=== PATIENT | male | born 1980 | race Caucasian/White ===

== ENCOUNTER → 2021-02-27 11:13 | Outpatient (BNVA) | payer OTHER, SELFPAY | PROVIDERS: PCP Internal Medicine; Visit Provider Psychiatry & Neurology Neurology ==

== ENCOUNTER → 2021-04-11 14:52 | Outpatient (REF) | payer OTHER, SELFPAY | LOC: HO.SL 14:52 | PROVIDERS: PCP Internal Medicine; Visit Provider Psychiatry & Neurology Neurology | DX: G47.10 Hypersomnia, unspecified (principal); G47.00 Insomnia, unspecified | CPT/HCPCS: 95806 ==

== ENCOUNTER → 2021-07-31 09:52 | Outpatient (BNVA) | payer OTHER, SELFPAY | PROVIDERS: PCP Internal Medicine; Referring Provider Internal Medicine; Visit Provider Psychiatry & Neurology Neurology ==

== ENCOUNTER 2022-01-03 12:37 | Outpatient (REF) | payer OTHER, SELFPAY ==
[2022-01-03 12:48] LABS: MANUAL DIFF FLAG NO
[2022-01-03 13:41] LABS: Basophils Percent Auto 0.3 % (0-2); Eosinophils Absolute Auto 0.1 X10*3/uL (0.0-0.4); Eosinophils Percent Auto 2.5 % (0-4); Hematocrit 41.8 % (42.0-52.0); Hemoglobin 13.4 g/dl (14.0-18.0); Imm Gran Abs Auto 0.01 X10*3/uL (0.00-0.03); Imm Gran Pct Auto 0.3 % (0.0-0.4); Lymphocytes Absolute Auto 1.7 X10*3/uL (1.2-4.9); Lymphocytes Percent Auto 41.9 % (20-40); Mean Corpuscular HGB Conc 32.1 g/dl (31.0-36.0); Mean Corpuscular Hemoglobin 28.8 pg (27.0-33.0); Mean Corpuscular Volume 89.9 fL (80.0-98.0); Mean Platelet Volume 10.1 fL (9.4-12.4); Monocytes Absolute Auto 0.4 X10*3/uL (0.1-1.2); Monocytes Percent Auto 9.3 % (2-11); Neutrophils Absolute Auto 1.8 x10*3/uL (2.0-8.3); Neutrophils Percent Auto 45.7 % (45-73); Platelet Count 295 X10*3/uL (160-400); Red Blood Count 4.65 X10*6/uL (4.60-5.80); Red Cell Distribution Width 13.6 % (11.0-16.0)
[2022-01-03 14:08] LABS: Alanine Aminotransferase 27 U/L (0-40); Albumin Level 4.1 g/dL (3.5-5.0); Alkaline Phosphatase 76 U/L (39-117); Anion Gap 11 (12-20); Aspartate Amino Transferase 24 U/L (5-37); Bilirubin Total 0.8 mg/dL (0.0-1.0); Blood Urea Nitrogen 17 mg/dL (9-16); C Reactive Protein 0.12 mg/dL (< or = 0.50); Calcium 9.8 mg/dL (8.4-10.2); Carbon Dioxide 33 mmol/L (22-29); Chloride 103 mmol/L (96-108); Cholesterol 252 mg/dL; Estimated Glomerular Filt Rate > 60; Glucose Random 61 mg/dL (60-115); HDL Cholesterol 43 mg/dL; LDL Cholesterol Calculated 185 mg/dl; Potassium 4.6 mmol/L (3.3-5.1); Sodium 142 mmol/L (135-145); Total Protein 6.8 g/dL (6.5-8.0); Triglycerides 120 mg/dL
[2022-01-03 14:21] LABS: Erythrocyte Sedimentation Rate 8 MM/HR (0-15); Free T4 (Free Thyroxine) 0.93 ng/dL (0.71-1.85); Thyroid Stimulating Hormone 2.78 uIU/mL (0.32-4.0)
[2022-01-03 15:20] LABS: Folate > 20.0 ng/mL (> or = 4.0); Vitamin B12 997 pg/mL (200-900)
== END 2022-01-03 12:38 | disposition home or self-care (01) ==
LOC: HO.LAB 12:37
PROVIDERS: PCP Internal Medicine; Visit Provider Internal Medicine
DX: M79.7 Fibromyalgia (principal); E78.00 Pure hypercholesterolemia, unspecified
CPT/HCPCS: 36415; 80053; 80061; 82607; 82746; 84439; 84443; 85025; 85652; 86140

== ENCOUNTER → 2022-01-09 20:17 | Outpatient (REF) | payer OTHER, SELFPAY | LOC: HO.SL 20:17 | PROVIDERS: PCP Internal Medicine; Visit Provider Psychiatry & Neurology Neurology | DX: G47.00 Insomnia, unspecified (principal) | CPT/HCPCS: 95810 ==

== ENCOUNTER 2022-04-03 16:12 | Outpatient (REF) | payer OTHER, SELFPAY ==
[2022-04-03 16:25] LABS: MANUAL DIFF FLAG NO
[2022-04-03 16:56] LABS: Basophils Percent Auto 0.5 % (0-2); Eosinophils Absolute Auto 0.1 X10*3/uL (0.0-0.4); Eosinophils Percent Auto 1.6 % (0-4); Hematocrit 36.9 % (42.0-52.0); Hemoglobin 12.2 g/dl (14.0-18.0); Imm Gran Abs Auto 0.01 X10*3/uL (0.00-0.03); Imm Gran Pct Auto 0.2 % (0.0-0.4); Immature Retic Fraction 7.6 % (2.3-13.4); Lymphocytes Absolute Auto 1.7 X10*3/uL (1.2-4.9); Lymphocytes Percent Auto 37.6 % (20-40); Mean Corpuscular HGB Conc 33.1 g/dl (31.0-36.0); Mean Corpuscular Hemoglobin 29.9 pg (27.0-33.0); Mean Corpuscular Volume 90.4 fL (80.0-98.0); Monocytes Absolute Auto 0.4 X10*3/uL (0.1-1.2); Monocytes Percent Auto 8.4 % (2-11); Neutrophils Absolute Auto 2.3 x10*3/uL (2.0-8.3); Neutrophils Percent Auto 51.7 % (45-73); Platelet Count 263 X10*3/uL (160-400); Red Blood Count 4.08 X10*6/uL (4.60-5.80); Red Cell Distribution Width 13.2 % (11.0-16.0); Retic HGB Equivalent 34.3 pg (30.0-35.0); Reticulocyte Percent 0.8 % (0.5-1.8); Reticulocytes Absolute 0.031 X10*6/uL (0.026-0.095); White Blood Count 4.4 X10*3/uL (4.8-10.8)
[2022-04-03 17:38] LABS: Alanine Aminotransferase 21 U/L (0-40); Albumin Level 4.1 g/dL (3.5-5.0); Alkaline Phosphatase 64 U/L (39-117); Anion Gap 9 (12-20); Aspartate Amino Transferase 24 U/L (5-37); Bilirubin Total 0.5 mg/dL (0.0-1.0); Blood Urea Nitrogen 17 mg/dL (9-16); Carbon Dioxide 34 mmol/L (22-29); Chloride 101 mmol/L (96-108); Cholesterol 240 mg/dL; Estimated Glomerular Filt Rate > 60; Glucose Random 77 mg/dL (60-115); HDL Cholesterol 44 mg/dL; Iron 66 mcg/dL (45-160); LDL Cholesterol Calculated 163 mg/dl; Percent Iron Saturation 27 % (15-50); Potassium 4.7 mmol/L (3.3-5.1); Sodium 139 mmol/L (135-145); Total Iron Binding Capacity 243 mcg/dL (228-428); Total Protein 6.6 g/dL (6.5-8.0); Triglycerides 165 mg/dL; Unsaturated Iron Binding 177 ug/dL
[2022-04-03 17:53] LABS: Ferritin 100 ng/mL (20-250)
== END 2022-04-03 16:13 | disposition home or self-care (01) ==
LOC: HO.LAB 16:12
PROVIDERS: PCP Internal Medicine; Visit Provider Internal Medicine
DX: E78.00 Pure hypercholesterolemia, unspecified (principal); K59.00 Constipation, unspecified
CPT/HCPCS: 36415; 80053; 80061; 82728; 83540; 85025; 85045

== ENCOUNTER 2023-09-18 12:55 | Outpatient (AMB) | payer OTHER, SELFPAY ==
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
[2023-09-18 13:11] VITALS: BP 118/74; PULSE 71; O2SAT 98; BMI 23.8
== END 2023-09-18 14:15 | disposition home or self-care (01) ==
PROVIDERS: Visit Provider Internal Medicine
DX: Z00.00 Encounter for general adult medical examination without abnormal findings (principal); Z72.0 Tobacco use; F11.259 Opioid dependence with opioid-induced psychotic disorder, unspecified; Z23 Encounter for immunization; E78.00 Pure hypercholesterolemia, unspecified; F41.1 Generalized anxiety disorder; K59.00 Constipation, unspecified; R06.02 Shortness of breath; R00.2 Palpitations
CPT/HCPCS: 90471; 90686; 96127; 99396

== ENCOUNTER → 2023-10-24 08:07 | Outpatient (REF) | payer BC, SELFPAY ==
--- NOTE | 2023-10-24 08:19 | HM_ITS ---
* Total monitoring time 3 days. * Underlying rhythm is sinus with an average rate of 73/Min. Range 41 to 149/Min. * About 18% of the time, rate greater than 100/Min. * Rare supraventricular and ventricular ectopy. * No significant pauses or AV blocks. * Patient markers used twice in association with sinus rhythm. * Patient diary with symptoms of tiredness, fatigue/shortness of breath during shoveling snow/snow blowing-associated with sinus rhythm and sinus tachycardia. MTDD
[2023-10-24 11:09] LABS: Alanine Aminotransferase 26 U/L (0-40); Albumin Level 4.2 g/dL (3.5-5.0); Alkaline Phosphatase 72 U/L (39-117); Anion Gap 13 (12-20); Aspartate Amino Transferase 30 U/L (5-37); Bilirubin Total 0.7 mg/dL (0.0-1.0); Blood Urea Nitrogen 14 mg/dL (9-16); C Reactive Protein 0.12 mg/dL (< or = 0.50); Calcium 9.4 mg/dL (8.4-10.2); Carbon Dioxide 29 mmol/L (22-29); Chloride 103 mmol/L (96-108); Cholesterol 267 mg/dL (<200); Estimated Glomerular Filt Rate > 60; Glucose Random 92 mg/dL (60-115); HDL Cholesterol 50 mg/dL (>40); LDL Cholesterol Calculated 191 mg/dL (<100); Potassium 4.2 mmol/L (3.3-5.1); Sodium 141 mmol/L (135-145); Total Protein 7.1 g/dL (6.5-8.0); Triglycerides 130 mg/dL (<150)
[2023-10-24 11:17] LABS: Ferritin 146 ng/mL (20-250); Free T4 (Free Thyroxine) 0.88 ng/dL (0.71-1.85); Thyroid Stimulating Hormone 1.95 uIU/mL (0.32-4.0)
== END ==
LOC: HO.CARD 08:07
PROVIDERS: PCP Internal Medicine; Visit Provider Internal Medicine
DX: R00.2 Palpitations (principal); R06.02 Shortness of breath; E78.00 Pure hypercholesterolemia, unspecified
CPT/HCPCS: 36415; 80053; 80061; 82607; 82728; 82746; 84439; 84443; 85025; 85652; 86140; 93005; 93017; 93242; 93306

== ENCOUNTER → 2023-10-24 08:19 | Outpatient (BNV) | payer BC, SELFPAY | PROVIDERS: PCP Internal Medicine; Visit Provider Nurse Practitioner | DX: I47.10 Supraventricular tachycardia, unspecified (principal) | CPT/HCPCS: 93010; 93016; 93018; 93244; 93306 ==

== ENCOUNTER 2023-10-27 11:31 | Outpatient (AMB) | payer BC, SELFPAY ==
--- NOTE | 2023-10-27 11:32 | MHC.OFFVIS ---
Intake Vital Signs 10/27/23 11:45 Height 5 ft 11 in Weight 170 lb 8 oz BMI 23.8 BP 101/61 Blood Pressure Location Lt brachial Position Sitting Respiration 18 Pulse 82 Pulse Source Pulse Oximeter Pulse Oximetry (%) 97 Oxygen Delivery Method Room Air Intake Visit Reasons: Fibromyalgia/confirmed Intake Note: patient comes in for initial visit was referred by PCP. Allergies Seasonal Allergies Allergy (Mild, Verified 10/27/23 11:56) Unknown HPI HPI Comments History of Present Illness Details Mr. Montreo is 43 years old gentleman who presents in my office with complains on widespread pain all over the body. He reports pain in form of muscle burning and cramping in the projection of the sternum bilateral hips bilateral calves bilateral feet bilateral elbows bilateral hands and bilateral lower back. He reports that because of his pain he cannot sleep normally cannot do activities of daily living cannot take care of himself cannot function normally apparently he is working. He is self mobile. Weather changes in movements aggravates his pain. He reports that pain in the hands is aggravated when he is extending his fingers straight. Any activities aggravate his pain. In terms of tissue damage he reports his pain as throbbing, cramping, aching, tiring, exhausting, hot burning, tingling, tearing sensation. He is currently taking Suboxone 24 mg maximum does to help his pain. He denies that Suboxone help his pain. He was on methadone with Dr. Bañuelos. Dr. Bañuelos converted him to Suboxone. He reports that methadone was much more helpful for his pain. He denies smoking cigarettes he stopped only 2 months ago. He denies drinking alcohol drinks 1 cup of coffee a day denies soda and denies recreational drugs. He reports past medical history of chronic fatigue syndrome and he denies any surgeries or hospitalization. He never was referred to physical therapy. He tried bicycling as a form of aerobic exercise and reports pain increase. [facility] Medical History (Updated 10/27/23 @ 12:23 by Malvin Victor MD) Constipation Hypercholesterolemia Polysubstance abuse History of seizure Erectile dysfunction Fibromyalgia Tobacco abuse Ascending aorta dilatation Opioid dependence Insomnia Surgical History No pertinent past surgical history Family History Father Hypertension Mother Hypertension Brother Colon cancer Brother Depression with anxiety Mental health disorder Social History (Updated 09/18/23 @ 13:52 by Aysha Beltran MD) Housing: House Alcohol intake: never Patient Tobacco Use Status: Former Tobacco user Tobacco use type: Cigarette Years Smoked: Vape electronic cigarettes- states stopped vape 08/2023 e-Cigarette/Vaping Use: Former Use Second Hand Smoke Exposure: No service: No Current occupational status: employed Cognitive needs: No Hearing needs: No Vision needs: No Review of Systems Const Reports body aches, Reports fatigue, Reports lethargy and Reports weakness ENT Reports Normal hearing present Card Reports no additional complaints Resp Reports no additional complaints GI Reports no additional complaints Reports no additional complaints Musc Reports as per HPI Neuro Reports Normal hearing present, Denies Abnormal speech present, Denies confusion, Denies Sensory deficit (Neuro) and Reports weakness Psych Reports abnormal sleep pattern and Denies confusion Endo Reports fatigue Physical Exam Vital Signs: Last Vital Signs Pulse 82 10/27/23 11:45 Resp 18 10/27/23 11:45 BP 101/61 10/27/23 11:45 Pulse Ox 97 10/27/23 11:45 Oxygen Delivery Method Room Air 10/27/23 11:45 BMI result Body Mass Index 23.8 Const General: no acute distress; No confusion Orientation/consciousness: patient oriented x3 and No confusion Eyes General: appearance normal, both eyes and all related structures Pupils: Equal, round and reactive pupils present EOM: EOMs intact bilaterally Neck Neck: Yes full ROM Chest Chest palpation & inspection: normal inspection of the chest Resp Effort & Inspection: normal respiratory effort, able to speak in complete sentences, normal respiratory pattern, no audible wheezes and no cough Cardio Jugular venous distension: no JVD GI Inspection: Yes normal to inspection Neuro General: patient oriented x3, gait normal and No confusion Cranial nerves: Yes CN's II-XII intact bilaterally, Yes Equal, round and reactive pupils present, Yes Normal hearing present and Yes Ability to bilaterally elevate shoulders present Speech: No Abnormal speech present Gait exam (Neuro): Normal gait present Motor exam (neuro): 5/5 motor strength present throughout Sensory Exam: No Sensory deficit (Neuro) Extrem General: No pedal edema Psych Speech and movement: Normal speech and movement present Affect: normal affect Attitude: cooperative Thought process: Normal thought process present Thought content: Normal thought content present Insight: Good insight present (Psych) Judgement: Good judgement present (Psych) Assessment & Plan Assessment & Plan (1) Fibromyalgia: Code(s): M79.7 - Fibromyalgia Plan: He reports that the he was under care of [place] supervisor and the as a diagnosis of exclusion he received a diagnosis of fibromyalgia. I explained to him that opioid medications including methadone and Suboxone/buprenorphine are the worst medications for fibromyalgia ever. I recommended him to got rid of any opioid medications he is currently on. There is a still possibility that he has some obscure condition which could potentially cause his symptoms. Rheumatological conditions are numerous, obscured infections also were found in the past to cause chronic fatigue syndrome and widespread pain. I recommended him to go for evaluation in the [facility] center of [facility] such as [facility] and [facility] or [facility]. In terms of treatment presuming that fibromyalgia diagnosis is correct I recommended him to start physical therapy, start opioid taper to get rid of all the medications of opioid nature. I will prescribe him gabapentin in significant doses which could potentially help his pain if his pain is coming from fibromyalgia. He reported that Lyrica causes some unknown side effects on him. (2) Chronic fatigue syndrome: Code(s): G93.32 - Myalgic encephalomyelitis/chronic fatigue syndrome Plan: Orders: Orders PT Evaluation and Treatment Today G93.32 - Myalgic encephalomyelitis/chronic fatigue syndrome, M79.7 - Fibromyalgia Medications: New gabapentin 400 mg PO TID 90 caps 5RF 30 days Patient Instructions: Patient came with intention to receive methadone. I spent 48 minutes discussing this patient problem with him as well as elevating his prior records, laboratory data and compressing this note. Coding Level of Care Code New Pt Level 4 (95983) Diagnoses Fibromyalgia M79.7 Chronic fatigue syndrome G93.32
[2023-10-27 11:45] VITALS: BP 101/61; PULSE 82; RESP 18; O2SAT 97; BMI 23.8
== END 2023-10-27 12:14 | disposition home or self-care (01) ==
PROVIDERS: PCP Internal Medicine; Referring Provider Internal Medicine; Visit Provider Anesthesiology
DX: M79.7 Fibromyalgia (principal); G93.32 Myalgic encephalomyelitis/chronic fatigue syndrome
CPT/HCPCS: 99204

== ENCOUNTER → 2023-10-27 11:31 | Outpatient (BNVA) | payer BC, SELFPAY | PROVIDERS: PCP Internal Medicine; Visit Provider Anesthesiology ==

== ENCOUNTER 2023-11-27 09:40 | Day surgery (SDC) | payer BC, SELFPAY ==
[2023-11-25 13:50] VITALS: BMI 23.8
--- NOTE | 2023-11-26 09:01 | P.CONAN_ITS ---
Documented by User: Tootie Cortes NP 11/26/23 09:07 HPI - Anesthesia Eval Consult details Narrative: 43yo M for Colonoscopy 10/2023 cardiac w/u by PCP for palps. Negative stress, holter. Echo shows known dilated asc aorta Suboxone daily PMFSH Active Problems Active Problems: All Active Problems (Updated 10/27/23 @ 12:23 by Malvin Victor MD) Chronic fatigue syndrome (Acute) Ascending aorta dilatation (Acute) SOB (shortness of breath) on exertion (Acute) Palpitations (Acute) Constipation (Acute) Acne (Acute) Seborrheic dermatitis of scalp (Acute) Anemia (Acute) Family history of colon cancer (Acute) Generalized anxiety disorder (Acute) Annual physical exam (Acute) Opioid dependence (Acute) Allergy (Acute) Insomnia (Acute) Hypersomnolence (Acute) Fibromyalgia (Acute) Nasal congestion (Acute) Hypercholesterolemia (Acute) Tobacco abuse (Acute) Past Medical History Medical History (Updated 11/27/23 @ 09:24 by Mamie Gilbert MD) Anemia Constipation Hypercholesterolemia Polysubstance abuse History of seizure Erectile dysfunction Fibromyalgia Tobacco abuse Ascending aorta dilatation Opioid dependence Insomnia Family History Family History Father Hypertension Mother Hypertension Brother Colon cancer Brother Depression with anxiety Mental health disorder Surgical History Surgical History No pertinent past surgical history Social History Social History Housing: House Alcohol intake: never Patient Tobacco Use Status: Former Tobacco user Tobacco use type: Cigarette Years Smoked: Vape electronic cigarettes- states stopped vape 08/2023 e-Cigarette/Vaping Use: Former Use Second Hand Smoke Exposure: No service: No Current occupational status: employed Cognitive needs: No Hearing needs: No Vision needs: No Meds Allergies Allergy/AdvReac Type Severity Reaction Status Date / Time Seasonal Allergies Allergy Mild Unknown Verified 10/27/23 11:56 Home Medications Medication Instructions Recorded Confirmed Last Taken Type clonazepam 0.5 mg tablet (Klonopin) 0.5 mg PO BEDTIME 11/09/20 09/18/23 Unknown History buprenorphine 8 mg-naloxone 2 mg 1.5 film sublingual BID 09/18/23 09/18/23 Unknown History sublingual film zolpidem 10 mg tablet (Ambien) 10 mg PO BEDTIME 09/18/23 09/18/23 Unknown History clonazepam 1 mg tablet 0.5 mg PO QID PRN anxiety 10/27/23 Unknown History Exam Height,Weight and Vital Signs: Height 5 ft 11 in Weight 77.56 kg Narrative Narrative: EKG 10/2023 Vent. Rate : 069 BPM Atrial Rate : 069 BPM P-R Int : 136 ms QRS Dur : 084 ms QT Int : 412 ms P-R-T Axes : 006 049 053 degrees QTc Int : 441 ms Normal sinus rhythm Normal ECG When compared with ECG of 30-JUN-2009 10:38, No significant change was found ECHO 10/2023 Conclusions: - There is mild dilatation of the sinuses of Valsalva measuring 4.00 cm, mild dilatation of the ascending aorta measuring 4.00 cm, and mild dilatation of the aortic arch measuring 3.40 cm. - Normal left ventricular size, thickness, systolic function, and wall motion. The visually estimated ejection fraction is between 55-60%. Diastolic function is normal for age. - Normal right ventricular cavity size and systolic function. Exercise Stress 10/2023 Protocol: JAXON Max HR: 157 BPM 89% of Pred: 176 BPM Max BP: 124/070 mmHG Max Work Load: 10.7 METS Exercise stress test exercise 9 min 25 sec of Jaxon protocol achieving 89% MPHR, with mild to moderate SOB, reported mild dizziness, without chest discomfort, without arrhythmias, with normotensive response, without EKG changes.Test reviewed with Dr. Shepard Holter 10/2023 * Total monitoring time 3 days. * Underlying rhythm is sinus with an average rate of 73/Min. Range 41 to 149/Min. * About 18% of the time, rate greater than 100/Min. * Rare supraventricular and ventricular ectopy. * No significant pauses or AV blocks. * Patient markers used twice in association with sinus rhythm. * Patient diary with symptoms of tiredness, fatigue/shortness of breath during shoveling snow/snow blowing-associated with sinus rhythm and sinus tachycardia. Assessment and Plan Assessment Anesthesia Assessment: Chart Reviewed Documented by User: Mamie Gilbert MD 11/27/23 10:48 [facility] Active Problems Active Problems: All Active Problems (Updated 11/27/23 @ 09:22 by Mamie Giblert MD) Chronic fatigue syndrome (Acute) Ascending aorta dilatation (Acute) SOB (shortness of breath) on exertion (Acute) Palpitations (Acute) Constipation (Acute) Acne (Acute) Seborrheic dermatitis of scalp (Acute) Family history of colon cancer (Acute) Generalized anxiety disorder (Acute) Annual physical exam (Acute) Opioid dependence (Acute). On suboxone. Last dose this morning Allergy (Acute) Insomnia (Acute) Hypersomnolence (Acute) Fibromyalgia (Acute) Nasal congestion (Acute) Hypercholesterolemia (Acute) Tobacco abuse (Acute) Past Medical History Medical History (Updated 11/27/23 @ 09:24 by Mamie Gilbert MD) Anemia Constipation Hypercholesterolemia Polysubstance abuse History of seizure Erectile dysfunction Fibromyalgia Tobacco abuse Ascending aorta dilatation Opioid dependence Insomnia Family History Family History Father Hypertension Mother Hypertension Brother Colon cancer Brother Depression with anxiety Mental health disorder Family history of problems with anesthesia: No Surgical History Surgical History No pertinent past surgical history History of Problems with Anesthesia: No Social History Social History Housing: House Alcohol intake: never Patient Tobacco Use Status: Former Tobacco user Tobacco use type: Cigarette Years Smoked: Vape electronic cigarettes- states stopped vape 08/2023 e-Cigarette/Vaping Use: Former Use Second Hand Smoke Exposure: No service: No Current occupational status: employed Cognitive needs: No Hearing needs: No Vision needs: No Meds Allergies Allergy/AdvReac Type Severity Reaction Status Date / Time Seasonal Allergies Allergy Mild Unknown Verified 10/27/23 11:56 Home Medications Medication Instructions Recorded Confirmed Last Taken Type clonazepam 0.5 mg tablet (Klonopin) 0.5 mg PO BEDTIME 11/09/20 09/18/23 Unknown History buprenorphine 8 mg-naloxone 2 mg 1.5 film sublingual BID 09/18/23 09/18/23 Unknown History sublingual film zolpidem 10 mg tablet (Ambien) 10 mg PO BEDTIME 09/18/23 09/18/23 Unknown History clonazepam 1 mg tablet 0.5 mg PO QID PRN anxiety 10/27/23 Unknown History Exam Height,Weight and Vital Signs: Height 5 ft 11 in Weight 77.56 kg Vital Signs Temp Pulse Resp BP Pulse Ox O2 Del Method 11/27/23 10:09 99.0 F 72 18 109/71 97 Room Air Airway Mallampati Class: II TM Dist: >3cm Neck ROM: Full Loose/Missing/Broken Teeth: Yes (Some missing. Denies broken or loose teeth) Heart: RRR Lungs: CTAB Assessment and Plan Assessment Anesthesia Assessment: Anesthesia Plan Discussed and Chart Reviewed Final Anesthetic Review Family History of Problems with Anesthesia: No History of Problems with Anesthesia: No NPO: Yes ASA Class: II Final Preanesthetic Review: No Changes in Pt Med Stat, Meds/Allgs Chart Reviewed, Consent Obtained/Reviewed and Anes Risks/Benef Reviewed Patient Risk: Intermediate Procedure Risk: Low Assessment/Block/Sedation in SS: Assess/Block/Sedation-SS Anesthetic Plan Anesthetic Plan: TIVA Disposition: Standard PACU
--- NOTE | 2023-11-27 09:11 | MHC.SHP ---
Pre-Procedural Eval Section A - 24 Hr Update-Section A only Date of Service: 11/27/23 Section B - Complete if H&P > 30 days Chief Complaint: Encounter for screening for malignant neoplasm of Details of Present Illness: PMH: Ascending aorta dilatation Erectile dysfunction Fibromyalgia History of seizure Insomnia Polysubstance abuse Relevant Family History (Specify if Yes): No Present Medications: see Short Stay Collaborative assessment Allergies: Allergies Allergy/AdvReac Type Severity Reaction Status Date / Time Seasonal Allergies Allergy Mild Unknown Verified 10/27/23 11:56 Review of Systems Review of Systems Comment: 10 point ROS negative except as above Exam Exam Comment: Gen appear: No acute distress HEENT: no icterus Chest: No overt resp distress Abd: soft, nontender, nondistended Psych: Stable affect, answering questions appropriately Neuro: A/Ox3 noted to move all extremities spontaneously Ext: no peripheral edema Plan Diagnosis/Plan: Unchanged I have reviewed the history and physical and performed a pertinent physical examination on my patient. No changes have occurred unless specified. Time Spent With Patient Time: Total time managing care of this patient today ____ minutes.
[2023-11-27 10:09] VITALS: BP 109/71; PULSE 72; RESP 18; TEMP 37.2; O2SAT 97
--- NOTE | 2023-11-27 10:14 | P.OP_ITS ---
Operative Note Operative Note Date of Service: 11/27/23 Narrative: Procedure: Colonoscopy Indication: Family history of colon cancer Endoscopist: Angelita Merida MD Anesthesia Provider: Dr Mamie Gilbert Anesthesia type: MAC Instrument: Olympus [id number]-[id number] Consent: Indication, risks vs benefits, and alternatives were discussed with the patient who gave written informed consent to proceed. EKG, pulse, pulse oximetry and blood pressure were monitored throughout the procedure. Please see anesthesia flowsheet. Procedure: The patient was brought to the procedure room and placed in the left lateral decubitus position. IV medications were administered by the anesthesia provider in attendance. A digital rectal exam was performed which was abnormal due to finding of hemorrhoids. A distal attachment cap was affixed to the tip of the scope and the colonoscope was then inserted through the anus and advanced through the colon to the cecum at 80 cm. Mucosa was carefully examined under high definition white light as the instrument was slowly withdrawn in a retrograde panoramic fashion. Retroflexion was performed in rectum. The procedure was not difficult. There were no immediate obvious complications. The quality of the prep was BBPS: 0+1+2 = inadequate Withdrawal time 8 minutes. Limitations: Poor prep. Findings: Mucosa: Solid stool was present in the right colon, and semi-solid/opaque stool was present in the transverse colon significantly limiting evaluation. Protruding lesions: * Medium internal hemorrhoids without stigmata of recent bleeding. Impression: 1. Poor prep 2. External and internal hemorrhoids Recommendations: - He will be rescheduled for colonoscopy for complete evaluation.
[2023-11-27 11:03] VITALS: BP 94/51; PULSE 66; RESP 16; TEMP 36.2; O2SAT 98
[2023-11-27 11:18] VITALS: BP 104/65; PULSE 56; RESP 16; TEMP 36.2; O2SAT 98
== END 2023-11-27 11:35 | disposition home or self-care (01) ==
PROVIDERS: PCP Internal Medicine; Visit Provider Internal Medicine
PROC: 0DJD8ZZ Inspection of Lower Intestinal Tract, Via Natural or Artificial Opening Endoscopic (ICD-10-PCS; CPT 45378; principal; 2023-11-27 10:50)
DX: Z12.11 Encounter for screening for malignant neoplasm of colon (principal); K64.8 Other hemorrhoids; K64.4 Residual hemorrhoidal skin tags; Z80.0 Family history of malignant neoplasm of digestive organs; F11.20 Opioid dependence, uncomplicated; E78.00 Pure hypercholesterolemia, unspecified
CPT/HCPCS: 45378; J2704

== ENCOUNTER → 2023-11-27 09:40 | Outpatient (BNV) | payer BC, SELFPAY | PROVIDERS: PCP Internal Medicine; Visit Provider Internal Medicine | DX: Z12.11 Encounter for screening for malignant neoplasm of colon (principal); Z80.0 Family history of malignant neoplasm of digestive organs; K64.8 Other hemorrhoids; Z91.199 Patient's noncompliance with other medical treatment and regimen due to unspecified reason | CPT/HCPCS: 45378 ==

== ENCOUNTER 2023-12-12 12:11 | Outpatient (AMB) | payer BC, SELFPAY ==
--- NOTE | 2023-12-12 12:15 | MHC.OFFVIS ---
Intake Vital Signs 12/12/23 12:17 Height 5 ft 11 in Weight 160 lb BMI 22.3 BP 81/50 L Blood Pressure Location Lt brachial Position Sitting Pulse 76 Intake Visit Reasons: s/p colon Intake Note: Patient follow up for Colonoscopy results. Patient cc: constipation. Denies any other GI issues. Leather Coater Required: No Accompanied by: Self / Same As Patient Allergies Seasonal Allergies Allergy (Mild, Verified 12/12/23 12:14) Unknown HPI s/p colon HPI Details LAST VISIT: Constipation Long history of constipation. Patient used to take methadone and for the last 3 years he is on Suboxone. Patient states that he used to had bowel movements once a week and now he is moving his bowels every couple days. Patient take MiraLax daily and Senokot S. Patient states that he take Senokot S twice a day. When he was taking 2 tablets at bedtime it was too strong for him. Discussed with him that we could try him taking Movantik if senna stops working. Continue current treatment for now. Patient reports that he sometimes take magnesium citrate. Patient states that that usually helps. Screen for colon cancer Patient denies any cardiac or respiratory symptoms.? History of constipation on [id number] medications that work for now. Patient reports that he had colonoscopies in the past and had no polyps. Patient states that 1 time when he did his prep he was unable to cleared up. Provider told him to take magnesium citrate and then do the prep. Denies any issues with anesthesia in the past.? Denies any history of sleep apnea.? No history infectious diseases in the past or present.? Not on any anticoagulation therapy.? No family or personal history of colon cancer or polyps.? Patient denies melena, hematochezia, unintentional weight loss or ribbon like stools.? Discussed at length the pre-procedure,? prep, diet & medications as well as what to expect prior, during and after the procedure.?? Stressed the importance of good bowel prep. ?Recommended the use of Vaseline or Calmoseptine OTC & baby wipes with bowel movements to promote comfort.? ?Patient verbalizes understanding and agrees to plan of care.? He was given the opportunity to ask questions and all questions answered.? We will see him after the procedure.? Plan Medications New bisacodyl (Dulcolax (bisacodyl)) take 2 tabs at noon the day before your colonoscopy 10 mg (2 x 5 mg) PO ONCE 1 day 2 tabs 0RF Z12.11 polyethylene glycol 3350 (Miralax) As directed by gastroenterology department at [facility] 238 grams PO ONCE 238 grams 0RF Z12.11 TODAY'S VISIT Patient is here today for follow-up. Patient went for his colonoscopy and did not do a good prep. Unable to perform colonoscopy because of that. Patient reports that he is taking Senokot and Dulcolax and still is having trouble moving his bowels. Patient reports that he feels frustrated. Currently he is on Suboxone which also contributes to his constipation. Patient reports that he is drinking plenty fluids. Bowel movement only every few days. Sometimes no bowel movement for a week. Patient denies any melena, hematochezia, unintentional weight loss or ribbon like stools. Patient denies any dyspepsia, dysphagia or odynophagia [facility] Medical History (Updated 12/12/23 @ 14:17 by Avis Hare [facility]) Anemia Constipation Hypercholesterolemia Polysubstance abuse History of seizure Erectile dysfunction Fibromyalgia Tobacco abuse Ascending aorta dilatation Opioid dependence Insomnia Surgical History No pertinent past surgical history Family History Father Hypertension Mother Hypertension Brother Colon cancer Brother Depression with anxiety Mental health disorder Social History Housing: House Alcohol intake: never Patient Tobacco Use Status: Former Tobacco user Tobacco use type: Cigarette Years Smoked: Vape electronic cigarettes- states stopped vape 08/2023 e-Cigarette/Vaping Use: Former Use Second Hand Smoke Exposure: No service: No Current occupational status: employed Cognitive needs: No Hearing needs: No Vision needs: No Review of Systems Const Denies weight gain and Denies weight loss ENT Reports no additional complaints, Denies dysphagia and Denies odynophagia Card Reports no additional complaints Resp Reports no additional complaints GI Denies abdominal pain, Denies belching, Denies melena, Denies bloating, Reports constipation, Denies dysphagia, Denies excessive flatus, Denies dyspepsia, Denies heartburn, Denies diarrhea, Denies loose stools, Denies nausea, Denies odynophagia and Denies vomiting Reports no additional complaints Musc Reports no additional complaints Neuro Reports no additional complaints Psych Reports no additional complaints Endo Reports no additional complaints Physical Exam Vital Signs: Last Vital Signs Pulse 76 12/12/23 12:17 BP 81/50 L 12/12/23 12:17 BMI result Body Mass Index 22.3 Const General: healthy appearing, no acute distress and well developed Nutritional Appearance: well nourished Orientation/consciousness: patient oriented x3 Resp Effort & Inspection: normal respiratory effort, able to speak in complete sentences, no tracheal deviation and symmetric chest movement Auscultation: clear to auscultation bilaterally Cardio Rate: regular rate GI Inspection: Yes normal to inspection and No distended Palpation (GI): Soft to palpation, not firm, nontender and No hepatosplenomegaly present Auscultation: normal bowel sounds General: Yes no CVA tenderness Back/Spine/Pelvis Back: no CVA tenderness Skin General skin exam: elasticity normal, turgor normal and dry skin Neuro General: patient oriented x3 Psych Appearance: grossly normal Mental Status: mental status grossly normal Assessment & Plan Assessment & Plan (1) Constipation: Code(s): K59.00 - Constipation, unspecified Qualifiers: Constipation type: drug induced constipation Qualified Code(s): K59.03 - Drug induced constipation Plan Patient was encouraged to increase fluid intake and activity to promote better bowel motility. Patient can start taking Linzess 145 mcg. He will return in 3 months. 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 Patient will call our office if he will continue to be constipated. He is agreeable to this plan and verbalizes understanding of instructions. He was given the opportunity to ask questions and all questions answered. Thank you for allowing me to participate in his care Medications: New linaclotide (Linzess) 145 mcg PO DAILY 30 caps 2RF Coding Level of Care Code Est Pt Level 3 (11355) Diagnoses Drug-induced constipation K59.03 Constipation type: drug induced constipation Time Spent (min) 25 Comment 15 minutes spent with patient and additional 10 minutes spent reviewing his records
[2023-12-12 12:17] VITALS: BP 81/50; PULSE 76; BMI 22.3
== END 2023-12-12 12:38 | disposition home or self-care (01) ==
PROVIDERS: PCP Internal Medicine; Visit Provider Nurse Practitioner Family
DX: K59.03 Drug induced constipation (principal)
CPT/HCPCS: 99213

== ENCOUNTER → 2023-12-12 12:11 | Outpatient (BNVA) | payer BC, SELFPAY | PROVIDERS: PCP Internal Medicine; Visit Provider Nurse Practitioner Family ==

== ENCOUNTER 2023-12-25 13:38 | Outpatient (AMB) | payer BC, SELFPAY ==
[2023-12-25 13:38] VITALS: BP 92/64; PULSE 67; O2SAT 95; BMI 23.8
--- NOTE | 2023-12-25 13:38 | MHC.PC.OV ---
Vital Signs 12/25/23 13:38 Height 5 ft 11 in Weight 171 lb BMI 23.8 BP 92/64 Blood Pressure Location Lt brachial Position Sitting Pulse 67 Pulse Source Pulse Oximeter Temp Source Skin Pulse Oximetry (%) 95 Oxygen Delivery Method Room Air Intake Visit Reasons: cholesterol , nicotine abuse Intake Note: Patient is here to follow up on cholesterol, nicotine abuse Waxer Required: No Allergies Seasonal Allergies Allergy (Mild, Verified 12/25/23 13:39) Unknown Tobacco use date assessed: 12/25/23 Dental Screening Dental Screen Date: 12/25/23 Did you have a dental visit in the last 12 months?: No Did you have a dental problem in the last 6 months where you did not have access to dental care?: No HPI cholesterol , nicotine abuse HPI Details 43-year-old male with a history of tobacco abuse opiate dependence hypercholesterolemia generalized anxiety disorder coming in for follow-up. Physical exam done in August 2023. Patient has followed up with Gastroenterology in November for constipation status post colonoscopy but this was poor prep patient is on opioids advised to increase oral fluids advised to take Linzess. Patient also sees pain management seen in October 2023 diagnosis of fibromyalgia advised physical therapy and advised opiate taper. With the palpitations patient had a Holter done underlying sinus rare SVT no pauses [facility] Medical History (Updated 12/12/23 @ 14:17 by Avis Hare [facility]) Anemia Constipation Hypercholesterolemia Polysubstance abuse History of seizure Erectile dysfunction Fibromyalgia Tobacco abuse Ascending aorta dilatation Opioid dependence Insomnia Surgical History No pertinent past surgical history Family History Father Hypertension Mother Hypertension Brother Colon cancer Brother Depression with anxiety Mental health disorder Social History Housing: House Alcohol intake: never Patient Tobacco Use Status: Former Tobacco user Tobacco use type: Cigarette Years Smoked: Vape electronic cigarettes- states stopped vape 08/2023 e-Cigarette/Vaping Use: Former Use Second Hand Smoke Exposure: No service: No Current occupational status: employed Cognitive needs: No Hearing needs: No Vision needs: No Questionnaire Thrive Questionnaire Date Thrive assessed: 12/25/23 AUDIT C Alcohol Use Questionnaire (AUDIT-C) 1. How often do you have a drink containing alcohol?: Never 3. How often do you have six or more drinks on one occasion?: Never Total Score: 0 MATY-7 AMB Questionnaire MATY-7 Date MATY - 7 assessed: 12/25/23 Source: Developed by Drs. Solomon Turner, Gissel Samano, Herb Mueller and colleagues, with an educational panchito from [employer]. Physical exam (Primary Care) Vital Signs: Last Vital Signs Pulse 67 12/25/23 13:38 BP 92/64 12/25/23 13:38 Pulse Ox 95 12/25/23 13:38 Oxygen Delivery Method Room Air 12/25/23 13:38 BMI result Body Mass Index 23.8 Tobacco/Smoking Status: Tobacco use Status Tobacco use date assessed 12/25/23 12/25/23 13:40 Patient Tobacco Use Status Former Tobacco user 12/25/23 13:40 Tobacco use type Cigarette 12/25/23 13:40 e-Cigarette/Vaping Use Former Use 12/25/23 13:40 Thrive Assessment: Date of Thrive Assessment Date Thrive assessed 12/25/23 12/25/23 13:40 Const General: alert; No acute distress Eyes Conjunctivae: conjunctivae normal Resp Auscultation: clear to auscultation bilaterally Cardio Rate: regular rate Rhythm: regular rhythm GI Inspection: Yes normal to inspection Extrem General: Yes normal to inspection and No edema Assessment and Plan Assessment & Plan (1) Ascending aorta dilatation: Comment: October 2023There is mild dilatation of the sinuses of Valsalva measuring 4.00 cm, mild dilatation of the ascending aorta measuring 4.00 cm, and mild dilatation of the aortic arch measuring 3.40 cm. - Normal left ventricular size, thickness, systolic function, and wall motion. The visually estimated ejection fraction is between 55-60%. Diastolic function is normal for age. - Normal right ventricular cavity size and systolic function. Code(s): I77.810 - Thoracic aortic ectasia Plan: Will continue to follow-up on this. This was last done in October 2023 will continue to follow-up on this. (2) Family history of colon cancer: Code(s): Z80.0 - Family history of malignant neoplasm of digestive organs Plan: Patient had a poor prep for the colonoscopy and will schedule at a later time (3) Constipation: Code(s): K59.00 - Constipation, unspecified Qualifiers: Constipation type: drug induced constipation Qualified Code(s): K59.03 - Drug induced constipation Plan: Three rules for constipation 1. Diet need to have a high fiber diet less of meat 2. Increase oral fluids 3. Exercise has seen gastroenterology in placed on Linzess (4) Generalized anxiety disorder: Comment: BHN Q 3 months Code(s): F41.1 - Generalized anxiety disorder Plan: Continue with counseling and therapy (5) Opioid dependence: Comment: Suboxone . presently [facility] Code(s): F11.20 - Opioid dependence, uncomplicated Qualifiers: Substance use status: with opioid-induced psychotic disorder Complication of substance-induced condition: with unspecified complication Qualified Code(s): F11.259 - Opioid dependence with opioid-induced psychotic disorder, unspecified Plan: Patient continues to follow-up with [facility] (6) Hypercholesterolemia: Code(s): E78.00 - Pure hypercholesterolemia, unspecified Plan: Avoid fried foods, chicken skin, eggs, butter margarine, pastries and meat. Be it pork or beef they have a lot of cholesterol LDL goal of less than 130 and triglyceride of less than 150 on simvastatin 5 mg once a day (7) Tobacco abuse: Comment: uses vape Code(s): Z72.0 - Tobacco use Plan: Patient is strongly advised to stop! (8) Chronic fatigue syndrome: Code(s): G93.32 - Myalgic encephalomyelitis/chronic fatigue syndrome Plan: Referral to sleep Medicine for possibly the reason on why the patient is tired all day long. Orders: Referrals Sleep Medicine Referral G93.32 - Myalgic encephalomyelitis/chronic fatigue syndrome Medications: Discontinued nicotine Discontinued Reason: Patient Completed Course 1 patch transdermal DAILY 28 ea 0RF Z72.0 - Tobacco use nicotine Discontinued Reason: Patient Completed Course 1 patch transdermal DAILY 28 ea 0RF Z72.0 - Tobacco use nicotine Discontinued Reason: Patient Completed Course 1 patch transdermal Q24H 28 ea 0RF Z72.0 - Tobacco use Coding Level of Care Code Est Pt Level 4 (29469) Diagnoses Ascending aorta dilatation I77.810 Family history of colon cancer Z80.0 Drug-induced constipation K59.03 Constipation type: drug induced constipation Generalized anxiety disorder F41.1 Opioid dependence with opioid-induced psychotic disorder with complication F11.259 Substance use status: with opioid-induced psychotic disorder Complication of substance-induced condition: with unspecified complication Hypercholesterolemia E78.00 Tobacco abuse Z72.0 Chronic fatigue syndrome G93.32
== END 2023-12-25 14:30 | disposition home or self-care (01) ==
PROVIDERS: PCP Internal Medicine; Visit Provider Internal Medicine
DX: I77.810 Thoracic aortic ectasia (principal); Z80.0 Family history of malignant neoplasm of digestive organs; K59.03 Drug induced constipation; F11.259 Opioid dependence with opioid-induced psychotic disorder, unspecified; E78.00 Pure hypercholesterolemia, unspecified; Z72.0 Tobacco use; G93.32 Myalgic encephalomyelitis/chronic fatigue syndrome
CPT/HCPCS: 99214

== ENCOUNTER 2024-01-22 11:07 | Outpatient (REF) | payer BC, SELFPAY ==
[2024-01-22 12:45] LABS: Alanine Aminotransferase 28 U/L (0-40); Albumin Level 3.9 g/dL (3.5-5.0); Alkaline Phosphatase 71 U/L (39-117); Anion Gap 8 (12-20); Aspartate Amino Transferase 29 U/L (5-37); Bilirubin Total 0.5 mg/dL (0.0-1.0); Blood Urea Nitrogen 12 mg/dL (9-16); Calcium 9.3 mg/dL (8.4-10.2); Carbon Dioxide 34 mmol/L (22-29); Chloride 102 mmol/L (96-108); Cholesterol 196 mg/dL (<200); Estimated Glomerular Filt Rate > 60; HDL Cholesterol 46 mg/dL (>40); LDL Cholesterol Calculated 128 mg/dL (<100); Potassium 3.6 mmol/L (3.3-5.1); Sodium 140 mmol/L (135-145); Total Protein 6.8 g/dL (6.5-8.0); Triglycerides 114 mg/dL (<150)
[2024-01-22 12:47] LABS: Glucose Random 59 mg/dL (60-115)
== END 2024-01-22 11:08 | disposition home or self-care (01) ==
LOC: HO.LAB 11:07
PROVIDERS: PCP Internal Medicine; Visit Provider Internal Medicine
DX: E78.00 Pure hypercholesterolemia, unspecified (principal)
CPT/HCPCS: 36415; 80053; 80061

== ENCOUNTER 2024-04-27 15:19 | Outpatient (AMB) | payer BC, SELFPAY ==
--- NOTE | 2024-04-27 15:21 | A.OFFVIS_ITS ---
Vital Signs 04/27/24 15:24 Height 5 ft 11 in Weight 174 lb 2.643 oz BMI 24.3 BP 110/73 Blood Pressure Location Lt brachial Position Sitting Pulse 96 Intake Visit Reasons: cic Intake Note: Mitchell presents in the office as a follow up for CIC. CC: Motegrity was denied and is here today to discuss constipation. Allergies Seasonal Allergies Allergy (Mild, Verified 04/28/24 16:02) Unknown HPI HPI cic: Details: LAST VISIT: onstipation Plan Patient was encouraged to increase fluid intake and activity to promote better bowel motility. Patient can start taking Linzess 145 mcg. He will return in 3 months. 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 Patient will call our office if he will continue to be constipated. He is agreeable to this plan and verbalizes understanding of instructions. He was given the opportunity to ask questions and all questions answered. ? Thank you for allowing me to participate in his care Medications New linaclotide (Linzess) 145 mcg PO DAILY 30 caps 2RF TODAY'S VISIT Patient is here today for follow-up. Patient reports that Linzess was not working for him we send a script for Motegrity, however his insurance was not paying for it. Was not on the formulary. RN was trying to get PA back in January and insurance company approved Viberzi and alosetron, both for IBS with diarrhea which are not patient's symptoms. Patient has severe constipation and being on Suboxone is making his symptoms worse. Patient reports that he is drinking lot of fluids. 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 Patient denies any melena, hematochezia, unintentional weight loss or ribbon like stools. Patient denies any dyspepsia, dysphagia or odynophagia [facility] Medical History Anemia Constipation Hypercholesterolemia Polysubstance abuse History of seizure Erectile dysfunction Fibromyalgia Tobacco abuse Ascending aorta dilatation Opioid dependence Insomnia Surgical History Hx of colonoscopy No pertinent past surgical history Family History Father Hypertension Mother Hypertension Brother Colon cancer Brother Depression with anxiety Mental health disorder Social History Housing: House Alcohol intake: never Patient Tobacco Use Status: Former Tobacco user Tobacco use type: Cigarette Years Smoked: Vape electronic cigarettes- states stopped vape 08/2023 e-Cigarette/Vaping Use: Former Use Second Hand Smoke Exposure: No service: No Current occupational status: employed Cognitive needs: No Hearing needs: No Vision needs: No Review of Systems Const Denies weight gain and Denies weight loss ENT Reports no additional complaints, Denies dysphagia and Denies odynophagia Card Reports no additional complaints Resp Reports no additional complaints GI Denies abdominal pain, Denies belching, Denies melena, Denies bloating, Denies change in bowel habits, Denies dysphagia, Denies excessive flatus, Denies dyspepsia, Denies heartburn, Denies diarrhea, Denies loose stools, Denies nausea, Denies odynophagia and Denies vomiting Reports no additional complaints Musc Reports no additional complaints Neuro Reports no additional complaints Psych Reports no additional complaints Endo Reports no additional complaints Physical Exam Vital Signs: Last Vital Signs Pulse 96 04/27/24 15:24 BP 110/73 04/27/24 15:24 BMI result Body Mass Index 24.3 Const General: healthy appearing, no acute distress and well developed Nutritional Appearance: well nourished Orientation/consciousness: patient oriented x3 Resp Effort & Inspection: normal respiratory effort, able to speak in complete sentences, no tracheal deviation and symmetric chest movement Auscultation: clear to auscultation bilaterally Cardio Rate: regular rate GI Inspection: Yes normal to inspection and No distended Palpation (GI): Soft to palpation, not firm, nontender and No hepatosplenomegaly present Auscultation: normal bowel sounds General: Yes no CVA tenderness Back/Spine/Pelvis Back: no CVA tenderness Skin General skin exam: elasticity normal, turgor normal and dry skin Neuro General: patient oriented x3 Psych Appearance: grossly normal Mental Status: mental status grossly normal Assessment & Plan Assessment & Plan (1) Constipation: Code(s): K59.00 - Constipation, unspecified Category: Medical Qualifiers: Constipation type: drug induced constipation Qualified Code(s): K59.03 - Drug induced constipation (2) Opioid dependence: Comment: Suboxone . presently [place] Code(s): F11.20 - Opioid dependence, uncomplicated Category: Medical Qualifiers: Complication of substance-induced condition: with unspecified complication Substance use status: with opioid-induced psychotic disorder Qualified Code(s): F11.259 - Opioid dependence with opioid-induced psychotic disorder, unspecified (3) Hypercholesterolemia: Code(s): E78.00 - Pure hypercholesterolemia, unspecified Category: Medical Plan Will order Amitiza for patient and see if his symptoms will get better. Patient can take Dulcolax on as needed basis. Increase fluid intake and activity to promote better bowel motility. Patient will call our office if he will have any trouble getting the medication. I will see patient in 6 months, we will discuss going for colonoscopy. Patient is agreeable to this plan and verbalizes understanding of instructions. He was given the opportunity to ask questions and all questions answered. Thank you for allowing me to participate in his care Medications: New lubiprostone (Amitiza) 24 mcg PO DAILY 30 caps 3RF K59.04 - Chronic idiopathic constipation Coding Level of Care Code Est Pt Level 3 (59569) Diagnoses Drug-induced constipation K59.03 Constipation type: drug induced constipation Opioid dependence with opioid-induced psychotic disorder with complication F11.259 Complication of substance-induced condition: with unspecified complication Substance use status: with opioid-induced psychotic disorder Hypercholesterolemia E78.00 Time Spent (min) 25 Comment 15 minutes spent with patient and additional 10 minutes spent reviewing his records
[2024-04-27 15:24] VITALS: BP 110/73; PULSE 96; BMI 24.3
== END 2024-04-27 15:47 | disposition home or self-care (01) ==
PROVIDERS: PCP Internal Medicine; Visit Provider Nurse Practitioner Family
DX: K59.03 Drug induced constipation (principal); F11.259 Opioid dependence with opioid-induced psychotic disorder, unspecified; E78.00 Pure hypercholesterolemia, unspecified
CPT/HCPCS: 99213

== ENCOUNTER → 2024-04-27 15:19 | Outpatient (BNVA) | payer BC, SELFPAY | PROVIDERS: PCP Internal Medicine; Visit Provider Nurse Practitioner Family ==

== ENCOUNTER 2024-04-28 15:22 | Outpatient (AMB) | payer BC, SELFPAY ==
--- NOTE | 2024-04-28 15:25 | A.OFFPC_ITS ---
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: No Allergies Seasonal Allergies Allergy (Mild, Verified 04/28/24 16:02) Unknown Medication List - Last Reconciled 04/28/24 by Lily Pruett PA-C benzoyl peroxide 10% 1 appl topical DAILY [benzoyl peroxide 10% ACNE Medication WASH As directed Apply to back daily prn acne] bisacodyl (Dulcolax (bisacodyl)) 10 mg (2 x 5 mg) PO BEDTIME buprenorphine-naloxone 8-2 mg 1.5 film sublingual BID clonazepam 0.5 mg PO QID PRN clonidine HCl 0.1 mg PO DAILY fluticasone propionate 50 mcg/actuation 2 sprays intranasal DAILY hydrocortisone 2.5% 1 appl topical BID-TID PRN ketoconazole 2% 1 appl topical 2XW 30 days lubiprostone (Amitiza) 24 mcg PO DAILY polyethylene glycol 3350 (Miralax) 17 grams PO DAILY 30 days sennosides-docusate sodium 8.6-50 mg (Senna-S) 2 tab-caps (2 x 8.6-50 mg) PO BEDTIME 30 days sertraline 25 mg PO DAILY simvastatin 5 mg PO BEDTIME trazodone 200 mg (2 x 100 mg) PO BEDTIME zolpidem (Ambien) 10 mg PO BEDTIME Tobacco use date assessed: 12/25/23 Dental Screening Dental Screen Date: 12/25/23 HPI 3 month f/u HPI Details 44-year-old male with past history of hy percholesterolemia, generalized anxiety disorder, and opiate dependence last seen by Dr. Beltran 12/25/2023 coming in for follow-up. Review of the notes patient is on Linzess for chronic constipation and followed by Gastroenterology last seen 04/27/2024 patient was encouraged to increase fluid intake and activity to promote better bowel motility and given Amitiza to help with chronic constipation. Patient has seen pain management in the past and recommended opiate taper with physical therapy. Today he tells us he has been taking the simvastatin as directed with no side effects. Patient is still having issues with constipation and is following with GI, having difficulty with insurance coverage medications. Today patient is requesting increased dose of trazodone due to difficulty sleeping, or something additional to help sleep. He states the Suboxone injection he was given has been making him feel weak and tired and unable to sleep. [facility] Medical History Anemia Constipation Hypercholesterolemia Polysubstance abuse History of seizure Erectile dysfunction Fibromyalgia Tobacco abuse Ascending aorta dilatation Opioid dependence Insomnia Surgical History Hx of colonoscopy No pertinent past surgical history Family History Father Hypertension Mother Hypertension Brother Colon cancer Brother Depression with anxiety Mental health disorder Social History Housing: House Alcohol intake: never Patient Tobacco Use Status: Former Tobacco user Tobacco use type: Cigarette Years Smoked: Vape electronic cigarettes- states stopped vape 08/2023 e-Cigarette/Vaping Use: Former Use Second Hand Smoke Exposure: No service: No Current occupational status: employed Cognitive needs: No Hearing needs: No Vision needs: No Questionnaire Thrive Questionnaire Date Thrive assessed: 12/25/23 AUDIT C Alcohol Use Questionnaire (AUDIT-C) 1. How often do you have a drink containing alcohol?: Never 3. How often do you have six or more drinks on one occasion?: Never Total Score: 0 MATY-7 AMB Questionnaire MATY-7 Date MATY - 7 assessed: 12/25/23 Source: Developed by Drs. Solomon Turner, Gissel Samano, Herb Mueller and colleagues, with an educational panchito from [employer]. Review of Systems Const Reports daytime sleepiness, Reports difficulty sleeping, Reports fatigue, Reports weakness, Denies weight gain and Denies weight loss Eyes Reports no additional complaints ENT Reports no additional complaints and Denies dysphagia Card Reports no additional complaints, Denies chest pain and Denies dyspnea Resp Reports no additional complaints and Denies dyspnea GI Denies abdominal pain, Denies melena, Denies bloating, Denies change in bowel habits, Reports constipation, Denies dysphagia, Denies heartburn, Denies diarrhea, Denies loose stools, Denies nausea and Denies vomiting Reports no additional complaints Musc Reports no additional complaints Skin/Breast Reports system reviewed and no additional complaints, except as documented Neuro Reports no additional complaints and Reports weakness Psych Reports no additional complaints Endo Reports no additional complaints and Reports fatigue Physical exam (Primary Care) Vital Signs: Oxygen Delivery Method Room Air 04/28/24 15:26 BMI result Body Mass Index 24.4 Tobacco/Smoking Status: Tobacco use Status Tobacco use date assessed 12/25/23 04/28/24 15:26 Patient Tobacco Use Status Former Tobacco user 04/28/24 15:26 Tobacco use type Cigarette 04/28/24 15:26 e-Cigarette/Vaping Use Former Use 04/28/24 15:26 Are you ready to quit: No Tobacco cessation counseling provided: Yes Relapse Prevention: discussed the importance of a supportive environment CPT code: Less than 3 minutes Thrive Assessment: Date of Thrive Assessment Date Thrive assessed 12/25/23 04/28/24 15:26 Const General: cooperative, healthy appearing and comfortable Nutritional Appearance: average body habitus Orientation/consciousness: patient oriented x3 HENMT Head: Yes normocephalic Eyes General: appearance normal, both eyes and all related structures Conjunctivae: conjunctivae normal Neck Neck: Yes normal visual inspection and Yes full ROM Resp Effort & Inspection: normal respiratory effort Auscultation: clear to auscultation bilaterally, no crackles, no rales, no rhonchi and no wheezes Cardio Rate: regular rate Rhythm: regular rhythm Peripheral pulses: radial pulses present Skin General skin exam: no rashes or lesions noted Neuro General: patient oriented x3 Extrem General: No edema Psych Affect: normal affect Attitude: cooperative Insight: Good insight present (Psych) Judgement: Good judgement present (Psych) Assessment and Plan Assessment & Plan (1) Hypercholesterolemia: Code(s): E78.00 - Pure hypercholesterolemia, unspecified Plan: LDL at 129 on last blood work which is currently at goal. Avoid foods that are high in cholesterol such as red meat, fried foods, eggs and baked goods. Triglyceride goal of less than 150 and LDL goal of less than 130. Continue on Simvastatin 5 mg at bed time. Repeat labs were ordered to be completed 1 week prior to next visit. (2) Tobacco abuse: Comment: uses vape Code(s): Z72.0 - Tobacco use Plan: Is not interesting in complete cessation at this time. Strongly encouraged to stop smoking. (3) Constipation: Code(s): K59.00 - Constipation, unspecified Qualifiers: Constipation type: drug induced constipation Qualified Code(s): K59.03 - Drug induced constipation Plan: Currently following up with GI who encouraged increased water intake and exercise to promote bowel motility. Was discontinued on Linzess and started on Amitiza during last appointment 04/27/2024. Will continue to follow with GI. 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 Trazodone at 200 mg which is the highest recommended dose so we will not increase this time. Patient is also on clonidine and zolpidem for sleep. Advised patient to follow up with Neurology for further management of insomnia due to multiple sedating medications at high doses. Patient has appointment scheduled with [facility]rology [facility] 06/29/2024. Plan Thank you for allowing me to participate in the care of this patient. I personally spent 30 minutes reviewing, examining and charting on this patient. Orders: Orders Comprehensive Met. Panel Today Z00.00 - Encounter for general adult medical examination without abnormal findings Lipid Panel Today Z00.00 - Encounter for general adult medical examination without abnormal findings Thyroid Stimulating Hormone Today Z00.00 - Encounter for general adult medical examination without abnormal findings Prostate Specific Antigen Scr Today Z00.00 - Encounter for general adult medical examination without abnormal findings Complete Blood Count Auto Diff Today Z00.00 - Encounter for general adult medical examination without abnormal findings TSH reflex Free T4 Today Z00.00 - Encounter for general adult medical examination without abnormal findings Coding Level of Care Code Est Pt Level 4 (12676) Diagnoses Hypercholesterolemia E78.00 Tobacco abuse Z72.0 Drug-induced constipation K59.03 Constipation type: drug induced constipation Chronic fatigue syndrome G93.32
[2024-04-28 15:26] VITALS: BP 96/72; PULSE 91; O2SAT 96; BMI 24.4
== END 2024-04-28 16:02 | disposition home or self-care (01) ==
PROVIDERS: PCP Internal Medicine
DX: E78.00 Pure hypercholesterolemia, unspecified (principal); Z72.0 Tobacco use; K59.03 Drug induced constipation; G93.32 Myalgic encephalomyelitis/chronic fatigue syndrome
CPT/HCPCS: 99214

== ENCOUNTER 2024-06-29 14:14 | Outpatient (AMB) | payer BC, SELFPAY ==
--- NOTE | 2024-06-29 14:19 | A.OFFVIS_ITS ---
Vital Signs 06/29/24 14:22 Height 5 ft 11 in Weight 180 lb 2 oz BMI 25.1 BP 106/66 Blood Pressure Location Rt brachial Position Sitting Respiration 16 Pulse 82 Pulse Source Pulse Oximeter Pulse Oximetry (%) 95 Oxygen Delivery Method Room Air Intake Visit Reasons: Chronic fatigue Intake Note: Pt reports feeling constant fatigue, dizziness and not well rested. Legal Office Administrator Required: No Allergies Seasonal Allergies Allergy (Mild, Verified 06/29/24 14:20) Unknown Medication List - Last Reconciled 06/29/24 by Edith Null MD benzoyl peroxide 10% 1 appl topical DAILY [benzoyl peroxide 10% ACNE Medication WASH As directed Apply to back daily prn acne] bisacodyl (Dulcolax (bisacodyl)) 10 mg (2 x 5 mg) PO BEDTIME clonazepam 0.5 mg PO QID PRN fluticasone propionate 50 mcg/actuation 2 sprays intranasal DAILY hydrocortisone 2.5% 1 appl topical BID-TID PRN ketoconazole 2% 1 appl topical 2XW 30 days methadone 90 mg PO DAILY polyethylene glycol 3350 (Miralax) 17 grams PO DAILY 30 days sennosides-docusate sodium 8.6-50 mg (Senna-S) 2 tab-caps (2 x 8.6-50 mg) PO BEDTIME 30 days sertraline 25 mg PO DAILY simvastatin 5 mg PO BEDTIME trazodone 200 mg (2 x 100 mg) PO BEDTIME zolpidem (Ambien) 10 mg PO BEDTIME HPI Comments Details: 44y/o male comes here for evaluation of chronic fatigue since his teenage years . He reports excessive daytime fatigue . He is tired even after sleeping for 9 hrs at night. He has had multiple sleep studies - last was - there was no evidence of sleep apnea.He reports gen weakness - feels like he has to sit all the time. He takes trazadone and some times takes ambien for chronic insomnia. He goes to [facility] for anxiety , insomnia. In his 20s he was addicted to opiods - started methadone clinic at age 25 . he t ried suboxone and now on methadone. No hallucinations No active dreams No head injury [facility] Medical History (Updated 06/29/24 @ 14:58 by Edith Null MD) Chronic fatigue Anemia Constipation Hypercholesterolemia Polysubstance abuse History of seizure Erectile dysfunction Fibromyalgia Tobacco abuse Ascending aorta dilatation Opioid dependence Insomnia Surgical History Hx of colonoscopy No pertinent past surgical history Family History Father Hypertension Mother Hypertension Brother Colon cancer Brother Depression with anxiety Mental health disorder Social History Household Members: Spouse Housing: House Alcohol intake: never Patient Tobacco Use Status: Former Tobacco user Tobacco use type: Cigarette Years Smoked: Vape electronic cigarettes- states stopped vape 08/2023 e-Cigarette/Vaping Use: Former Use Second Hand Smoke Exposure: No Use of substances other than those prescribed or required for medical reasons: No service: No Current occupational status: employed Cognitive needs: No Hearing needs: No Vision needs: No Physical Exam Vital Signs: Last Vital Signs Pulse 82 06/29/24 14:22 Resp 16 06/29/24 14:22 BP 106/66 06/29/24 14:22 Pulse Ox 95 06/29/24 14:22 Oxygen Delivery Method Room Air 06/29/24 14:22 BMI result Body Mass Index 25.1 Const General: cooperative and anxious Nutritional Appearance: average body habitus Orientation/consciousness: patient oriented x3 Eyes Pupils: Equal, round and reactive pupils present Neuro Other: severely decreased blink General: patient oriented x3, gait normal, tone normal, moves all extremities and no focal motor deficits Cranial nerves: Yes Facial sensation intact/muscles of mastication intact, Yes Equal, round and reactive pupils present, Yes Bilaterally intact EOM present, Yes Nystagmus not present, Yes Normal facial strength present and Yes Midline tongue present Cognition (Neuro): normal cognition Gait exam (Neuro): Normal gait present Motor exam (neuro): 5/5 motor strength present throughout and Normal motor muscle tone present throughout Deep tendon reflexes (DTR's): Right triceps reflex intensity grade: 2+, Left triceps reflex intensity grade: 2+, Rt Biceps (C5, C6): 2+, Left biceps reflex intensity grade: 2+, Right brachioradialis reflex intensity grade: 2+, Left brachioradialis reflex intensity grade: 2+, Right patellar reflex intensity grade: 2+ and Left patellar reflex intensity grade: 2+ Coordination: [id number] test normal Assessment & Plan Assessment & Plan (1) Chronic fatigue: Comment: his PSG for 2021 was normal . Code(s): R53.82 - Chronic fatigue, unspecified Category: Medical Plan Unclear etiology for his chronic fatigue. He denies sleepiness and declines MSLT His poorly controlled mood and meds may affect his fatigue Consider second opinion Rheumatology evaluation stabilize mood I will evaluate with EEG to determine medication affect causing fatigue Consider referring to [facility] for second opinion Orders: Orders EEG electroencephalogram Today R53.82 - Chronic fatigue, unspecified Medications: Changed From sertraline 25 mg PO DAILY To sertraline 50 mg PO DAILY Coding Level of Care Code New Pt Level 4 (51091) Diagnoses Chronic fatigue R53.82
[2024-06-29 14:22] VITALS: BP 106/66; PULSE 82; RESP 16; O2SAT 95; BMI 25.1
== END 2024-06-29 15:06 | disposition home or self-care (01) ==
PROVIDERS: PCP Internal Medicine; Visit Provider Psychiatry & Neurology Neurology
DX: R53.82 Chronic fatigue, unspecified (principal)
CPT/HCPCS: 99213

== ENCOUNTER → 2024-06-29 14:14 | Outpatient (BNVA) | payer BC, SELFPAY | PROVIDERS: PCP Internal Medicine; Visit Provider Psychiatry & Neurology Neurology ==

== ENCOUNTER 2024-08-12 | Outpatient (REF) | payer BC, SELFPAY ==
[2024-08-14 07:34] LABS: OBS1 NEGATIVE (NEGATIVE); OBS2 NEGATIVE (NEGATIVE); OBS3 NEGATIVE (NEGATIVE)
[2024-08-14 07:35] LABS: OBS Int Ctl Valid YES; OBS Lot 50142
== END 2024-08-12 00:01 | disposition home or self-care (01) ==
LOC: HO.LNP
PROVIDERS: Visit Provider Nurse Practitioner Family
DX: K62.5 Hemorrhage of anus and rectum (principal)
CPT/HCPCS: 82270

== ENCOUNTER 2024-09-15 13:00 | Outpatient (REF) | payer BC, SELFPAY ==
--- NOTE | 2024-09-15 13:04 | EEG_ITS ---
FINDINGS: The waking background activity consists of a well defined, moderate voltage 10 hertz posterior alpha frequency that seen symmetrically and attenuates well with eye opening, and low-voltage fast frequencies predominate anteriorly. Photic stimulation is without activation. No focal, lateralizing, or paroxysmal discharges are seen. IMPRESSION: This waking EEG is within normal limits. MD CORBY Burch/ROBBY / [id number]
== END 2024-09-15 13:01 | disposition home or self-care (01) ==
LOC: HO.NEURO 13:00
PROVIDERS: PCP Internal Medicine; Visit Provider Psychiatry & Neurology Neurology
DX: R53.82 Chronic fatigue, unspecified (principal)
CPT/HCPCS: 95816

== ENCOUNTER 2024-10-29 15:19 | Outpatient (AMB) | payer BC, SELFPAY ==
--- NOTE | 2024-10-29 15:24 | MHC.PC.OV ---
Vital Signs 10/29/24 15:25 Height 5 ft 11 in Weight 189 lb 4 oz BMI 26.4 BP 100/70 Blood Pressure Location Lt brachial Position Sitting Pulse 77 Pulse Source Pulse Oximeter Pulse Oximetry (%) 96 Oxygen Delivery Method Room Air Intake Visit Reasons: Annual Exam Intake Note: Patient is here today for a physical. Partner Required: No Firearms Inspector: Not Required per policy Accompanied by: Self / Same As Patient Allergies Seasonal Allergies Allergy (Mild, Verified 10/29/24 15:38) Unknown Medication List - Last Reconciled 10/29/24 by Lily Pruett PA-C benzoyl peroxide 10% 1 appl topical DAILY [benzoyl peroxide 10% ACNE Medication WASH As directed Apply to back daily prn acne] bisacodyl (Dulcolax (bisacodyl)) 10 mg (2 x 5 mg) PO BEDTIME clonazepam 0.5 mg PO QID PRN fluticasone propionate 50 mcg/actuation 2 sprays intranasal DAILY hydrocortisone 2.5% 1 appl topical BID-TID PRN ketoconazole 2% 1 appl topical 2XW 30 days methadone 180 mg PO DAILY polyethylene glycol 3350 (Miralax) 17 grams PO DAILY 30 days sennosides-docusate sodium 8.6-50 mg (Senna-S) 2 tab-caps (2 x 8.6-50 mg) PO BEDTIME 30 days simvastatin 5 mg PO BEDTIME trazodone 200 mg (2 x 100 mg) PO BEDTIME zolpidem (Ambien) 12.5 mg PO BEDTIME Tobacco use date assessed: 10/29/24 Dental Screening Dental Screen Date: 10/29/24 Did you have a dental visit in the last 12 months?: Yes Did you have a dental problem in the last 6 months where you did not have access to dental care?: No Was dental information given to patient?: Patient has dentist HPI Annual Exam HPI Details 44-year-old male with past medical history of hypercholesterolemia, generalized anxiety disorder, opiate dependence last seen 04/2024 coming in for annual exam.? In review of the notes patient was seen by Neurology 06/2024 chronic fatigue ordered EEG and increased sertraline. Today he tells us he follows with [facility] for management of his anxiety and sleep medications. He recently had a change in providers and is unhappy with his current medication regimen and is awaiting his original provider to return from maternity leave. He also mentions undergoing TMs for his depression. He is requesting us to refill his gabapentin 300 mg as he was on this previously but has not been able to get it. He continues to have chronic fatigue and has undergone workup with several different sleep medicine doctors without any answers. He follows with GI for constipation. [facility] Medical History Chronic fatigue Anemia Constipation Hypercholesterolemia Polysubstance abuse History of seizure Erectile dysfunction Fibromyalgia Tobacco abuse Ascending aorta dilatation Opioid dependence Insomnia Surgical History Hx of colonoscopy No pertinent past surgical history Family History Father Hypertension Mother Hypertension Brother Colon cancer Brother Depression with anxiety Mental health disorder Social History Household Members: Spouse Housing: House Alcohol intake: never Patient Tobacco Use Status: Former Tobacco user Tobacco use type: Cigarette Years Smoked: Vape electronic cigarettes- states stopped vape 08/2023 e-Cigarette/Vaping Use: Former Use Second Hand Smoke Exposure: No service: No Current occupational status: employed Cognitive needs: No Hearing needs: No Vision needs: No Questionnaire PHQ-9 Over the last 2 weeks, how often have you been bothered by any of the following problems? 1. Little interest or pleasure in doing things: nearly every day 2. Feeling down, depressed, or hopeless: nearly every day 3. Trouble falling or staying asleep, or sleeping too much: more than half the days 4. Feeling tired or having little energy: nearly every day 5. Poor appetite or overeating: nearly every day 6. Feeling bad about yourself - or that you are a failure or have let yourself or your family down: not at all 7. Trouble concentrating on things, such as reading the newspaper or watching television: not at all 8. Moving or speaking so slowly that other people could have noticed. Or the opposite - being so fidgety or restless that you have been moving around a lot more than usual: not at all 9. Thoughts that you would be better off or of hurting yourself in some way: not at all Total score: 14 Depression Screening Interpretation: Positive Depression Screening Follow-up: Existing condition and In treatment Depression Screening Done: Yes Source: Developed by Drs. Solomon Turner, Herb Kelly and colleagues, with an educational panchito from [email or web address]. Thrive Questionnaire Date Thrive assessed: 10/29/24 I am a: Patient What is your living situation today?: I have a steady place to live Within the past 12 months, did the food you bought not last and you didn't have the money to get more?: Never true Within the past 12 months, did you worry whether your food would run out before you got money to buy more?: Never true Do you have trouble paying for medicines?: No Do you have trouble getting transportation to medical appointments?: No Do you have trouble paying your heating and electricity bill?: No Do you have trouble taking care of your child, family member or friend?: No Do you have trouble with day-to-day activities such as bathing, preparing meals, shopping, managing finances, etc.?: No Are you currently unemployed and looking for a job?: No Are you interested in more education?: No Please select the resources that you would like help with: None Currently or been in a relationship where the following occur: No concerns reported THRIVE Score: 0 AUDIT C Alcohol Use Questionnaire (AUDIT-C) 1. How often do you have a drink containing alcohol?: Never Total Score: 0 MATY-7 AMB Questionnaire MATY-7 Date MATY - 7 assessed: 10/29/24 Feeling nervous, anxious, or on edge: 1 = Several days Not being able to stop or control worryin = Several days Worrying too much about different things: 1 = Several days Trouble relaxin = Not at all Being so restless that it is hard to sit still: 1 = Several days Becoming easily annoyed or irritable: 0 = Not at all Feeling afraid as if something awful might happen: 0 = Not at all Total MATY-7 score (0-4 normal; 5-9 mild; 10-14 moderate; 15-21 severe): 4 Source: Developed by Gissel Medellin Kurt Kroenke and colleagues, with an educational panchito from [employer]. MATY-7 Assessment Billing MATY-7 Assessment Tool: MATY-7 Assessment 10392 Review of Systems Const Denies body aches, Reports fatigue, Denies fever(s), Denies frequent falls, Denies headache(s), Reports lethargy and Denies weakness Eyes Reports no additional complaints and Denies change in vision ENT Denies dizziness, Denies facial pain, Denies headache(s) and Denies nasal congestion Card Denies chest pain, Denies syncope, Denies irregular heart rhythm, Denies leg edema, Denies lightheadedness and Denies dyspnea Resp Denies cough and Denies dyspnea GI Denies abdominal pain, Reports constipation, Denies dyspepsia, Denies diarrhea, Denies nausea and Denies vomiting Denies dysuria, Denies urinary frequency, Denies urinary hesitancy and Denies urinary urgency Musc Denies back pain and Denies myalgias Skin/Breast Reports system reviewed and no additional complaints, except as documented Neuro Denies dizziness, Denies syncope, Denies frequent falls, Denies headache(s) and Denies weakness Psych Reports no additional complaints Endo Reports fatigue Physical exam (Primary Care) Vital Signs: Last Vital Signs Pulse 77 10/29/24 15:25 BP 100/70 10/29/24 15:25 Pulse Ox 96 10/29/24 15:25 Oxygen Delivery Method Room Air 10/29/24 15:25 BMI result Body Mass Index 26.4 Tobacco/Smoking Status: Tobacco use Status Tobacco use date assessed 10/29/24 10/29/24 15:29 Patient Tobacco Use Status Former Tobacco user 10/29/24 15:29 Tobacco use type Cigarette 10/29/24 15:29 e-Cigarette/Vaping Use Former Use 10/29/24 15:29 PHQ-9: PHQ-9 Score PHQ-9: Total score 14 10/29/24 15:36 Depression Screening Interpretation: Positive Depression Screening Follow-up: Existing condition and In treatment Thrive Assessment: Date of Thrive Assessment Date Thrive assessed 10/29/24 10/29/24 15:29 Currently or been in a relationship where the following occur: No concerns reported Const General: cooperative, healthy appearing, comfortable and no acute distress Orientation/consciousness: patient oriented x3 HENMT Head: Yes normocephalic Ears: hearing grossly normal bilaterally, external ears normal, TM's normal bilaterally and EAC's normal General nose exam: Normal external nose present Face and sinus: Yes normal facial exam and Yes sinuses nontender Mouth: Normal oral and palatal mucosa present and tongue normal Throat: Yes posterior oropharynx normal Eyes General: appearance normal, both eyes and all related structures Conjunctivae: conjunctivae normal Pupils: Equal, round and reactive pupils present EOM: EOMs intact bilaterally and No Nystagmus present Neck Neck: Yes normal visual inspection, Yes full ROM and Yes no lymphadenopathy Chest Chest palpation & inspection: normal inspection of the chest Resp Effort & Inspection: normal respiratory effort Auscultation: clear to auscultation bilaterally, no crackles, no rales, no rhonchi, no wheezes and breath sounds present Cardio Rate: regular rate Rhythm: regular rhythm Peripheral pulses: radial pulses present and dorsalis pedis present GI Inspection: Yes normal to inspection and No Abdominal wall edema Palpation (GI): Soft to palpation, not firm and nontender Auscultation: normal bowel sounds Rectal Exam - Male: Yes deferred General: Yes no CVA tenderness Back/Spine/Pelvis Back: no CVA tenderness Skin General skin exam: no rashes or lesions noted Neuro General: patient oriented x3 Cranial nerves: Yes Equal, round and reactive pupils present, Yes Midline tongue present, Yes Ability to bilaterally elevate shoulders present and No Nystagmus present Gait exam (Neuro): Normal gait present Extrem General: Yes normal to inspection, Yes full ROM, No no pedal edema and No edema Psych Speech and movement: Normal speech and movement present Affect: normal affect Insight: Good insight present (Psych) Judgement: Good judgement present (Psych) Office Procedures Flu Questionnaire Does the patient have a severe egg allergy?: No Does the patient have severe life threatening allergies?: No Does the patient have a fever or illness today?: No Has the patient ever had Guillain-Friedens Syndrome?: No Has the patient ever had any past reaction to a flu shot?: No Immunizations Fluarix Triv [id number] (PF) 45 mcg (15 mcg x 3)/0.5 mL IM syringe Performing Provider: Lily Pruett PA-C Performing Location: [facility] [place] [facility] Administered by: Ellen Wood LPN on 10/29/24 15:39 Dose Route Admin Location Dispensed Lot Number Expiration Date NDC Pegger Dobby Looms 0.5 mL IM Left Deltoid 0.5 mL [id number] 04/18/25 54495-169-80 [employer] VIS Given Date VIS Provided VIS Publication Date 10/29/24 Single Vaccine 21 Eligibility Eligibility Date Funding Source Not VFC Eligible 10/29/24 Private Coding Level of Care Code Est Pt Prev Care 40-64y(49311) Diagnoses Chronic fatigue R53.82 Ascending aorta dilatation I77.810 Drug-induced constipation K59.03 Constipation type: drug induced constipation Generalized anxiety disorder F41.1 Annual physical exam Z00.00 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 Code(s): R53.82 - Chronic fatigue, unspecified Category: Medical Plan: Patient has seen several sleep specialists and does not have answers for his chronic fatigue. He is requesting to see a doctor in [place] discussed with patient I will send referral if he is willing to find the clinic that he would like to see. In the meantime advised to follow up with [facility] [place] sleep/Neurology. Most recent EEG normal. (2) Ascending aorta dilatation: Comment: October 2023There is mild dilatation of the sinuses of Valsalva measuring 4.00 cm, mild dilatation of the ascending aorta measuring 4.00 cm, and mild dilatation of the aortic arch measuring 3.40 cm. - Normal left ventricular size, thickness, systolic function, and wall motion. The visually estimated ejection fraction is between 55-60%. Diastolic function is normal for age. - Normal right ventricular cavity size and systolic function. Code(s): I77.810 - Thoracic aortic ectasia Category: Medical Plan: Most recent Echo 10/2023 will continue to monitor. (3) Constipation: Code(s): K59.00 - Constipation, unspecified Category: Medical Qualifiers: Constipation type: drug induced constipation Qualified Code(s): K59.03 - Drug induced constipation Plan: Currently following with GI for chronic constipation on several different medications for this concern. Continue to follow with Gastroenterology. (4) Generalized anxiety disorder: Comment: BHN Q 3 months Code(s): F41.1 - Generalized anxiety disorder Category: Medical Plan: Currently following with [facility] for management of anxiety and sleep medications. Patient is unhappy with current medication and advised patient to asked to switch providers or discuss further with his mental health counselor. (5) Annual physical exam: Code(s): Z00.00 - Encounter for general adult medical examination without abnormal findings Category: Medical Plan: Patient is up-to-date on all recommended routine screenings and vaccinations for his age. Blood work is up-to-date in reminded patient about blood work today. Colonoscopy will be due this year and he is following with GI for this concern. Vaccinations are up-to-date. Healthy diet and regular exercise is encouraged. (6) Opioid dependence: Comment: Methadone. presently Clean Slate Code(s): F11.20 - Opioid dependence, uncomplicated Category: Medical Qualifiers: Substance use status: with opioid-induced psychotic disorder Complication of substance-induced condition: with unspecified complication Qualified Code(s): F11.259 - Opioid dependence with opioid-induced psychotic disorder, unspecified Plan: Presently on methadone. (7) Insomnia: Code(s): G47.00 - Insomnia, unspecified Category: Medical Plan: On zolpidem 12.5 mg continue to follow with psychiatry (8) Hypersomnolence: Code(s): G47.10 - Hypersomnia, unspecified Category: Medical Plan: Continue to follow with [facility] [place] sleep medicine. (9) Fibromyalgia: Code(s): M79.7 - Fibromyalgia Category: Medical Plan: Not currently on pain management but does complain of chronic muscle aches and pains. Advised patient to use Tylenol and ibuprofen as needed for pain and declined referral to pain management. (10) Hypercholesterolemia: Code(s): E78.00 - Pure hypercholesterolemia, unspecified Category: Medical Plan: Avoid foods that are high in cholesterol such as red meat, fried foods, eggs and baked goods. Triglyceride goal of less than 150 and LDL goal of less than 130. Continue on simvastatin 5. Reminded about blood work. (11) Tobacco abuse: Comment: uses vape Code(s): Z72.0 - Tobacco use Category: Medical Plan: Smoking and the use of tobacco can be harmful. We discussed the importance of stopping and options to aid in smoking cessation. (12) Numbness of left hand: Code(s): R20.0 - Anesthesia of skin Category: Medical Plan: Patient complaining of numbness and tingling in left hand and occasionally dropping things. Ordered for EMG for further evaluation. Plan This note was constructed using voice recognition software. While every effort has been made to ensure accuracy and electrical tester, still areas may have been included sometimes these areas may affect the content or meeting of the given symptoms. Total time spent caring for the patient today was 30 minutes. This includes time spent before the visit reviewing the chart, time spent during the visit, and time spent after the visit and documentation. Orders: Orders Influenza [id number] Immunization Today Z23 - Encounter for immunization NE electromyogram (EMG) Today R20.0 - Anesthesia of skin
[2024-10-29 15:25] VITALS: BP 100/70; PULSE 77; O2SAT 96; BMI 26.4
== END 2024-10-29 15:58 | disposition home or self-care (01) ==
PROVIDERS: PCP Internal Medicine
DX: Z00.00 Encounter for general adult medical examination without abnormal findings (principal); I77.810 Thoracic aortic ectasia; F11.259 Opioid dependence with opioid-induced psychotic disorder, unspecified; R53.82 Chronic fatigue, unspecified; K59.03 Drug induced constipation; F41.1 Generalized anxiety disorder; G47.00 Insomnia, unspecified; G47.10 Hypersomnia, unspecified; M79.7 Fibromyalgia; E78.00 Pure hypercholesterolemia, unspecified; Z72.0 Tobacco use; R20.0 Anesthesia of skin; Z23 Encounter for immunization

== ENCOUNTER → 2024-10-29 15:19 | Outpatient (BNVA) | payer BC, SELFPAY | PROVIDERS: PCP Internal Medicine | DX: Z00.00 Encounter for general adult medical examination without abnormal findings (principal); Z23 Encounter for immunization; E78.00 Pure hypercholesterolemia, unspecified; F41.1 Generalized anxiety disorder; F11.259 Opioid dependence with opioid-induced psychotic disorder, unspecified; R53.82 Chronic fatigue, unspecified; I77.810 Thoracic aortic ectasia; K59.03 Drug induced constipation; T50.905A Adverse effect of unspecified drugs, medicaments and biological substances, initial encounter; G47.00 Insomnia, unspecified; G47.10 Hypersomnia, unspecified; M79.7 Fibromyalgia; R20.0 Anesthesia of skin; Z79.899 Other long term (current) drug therapy; Z72.0 Tobacco use | CPT/HCPCS: 90471; 90656; 96127 ==

== ENCOUNTER 2024-11-02 14:29 | Outpatient (AMB) | payer BC, SELFPAY ==
[2024-11-02 14:36] VITALS: BP 110/62; PULSE 74; O2SAT 96; BMI 26.6
--- NOTE | 2024-11-02 14:36 | MHC.OFFVIS ---
Vital Signs 11/02/24 14:36 Height 5 ft 11 in Weight 190 lb 7.67 oz BMI 26.6 BP 110/62 Blood Pressure Location Rt brachial Position Sitting Pulse 74 Pulse Source Pulse Oximeter Pulse Oximetry (%) 96 Oxygen Delivery Method Room Air Intake Visit Reasons: 6 month f/u Intake Note: ESTABLISHED PATIENT Reason; 6 mos Changes/concerns? Pt reports having no significant changes since last visit and is still dealing with chronic sx. Allergies Seasonal Allergies Allergy (Mild, Verified 11/02/24 14:36) Unknown HPI HPI 6 month f/u: Details: LAST VISIT Constipation Opioid dependence Hypercholesterolemia Plan Will order Amitiza for patient and see if his symptoms will get better. Patient can take Dulcolax on as needed basis. Increase fluid intake and activity to promote better bowel motility. Patient will call our office if he will have any trouble getting the medication. I will see patient in 6 months, we will discuss going for colonoscopy. Patient is agreeable to this plan and verbalizes understanding of instructions. He was given the opportunity to ask questions and all questions answered. ? Thank you for allowing me to participate in his care Medications New lubiprostone (Amitiza) 24 mcg PO DAILY 30 caps 3RF K59.04 TODAY'S VISIT Patient is here today for follow-up. Patient continues to be constipated. Takes Amitiza and sometimes Dulcolax and he still feels like he does not empty his bowels well. Patient is taking methadone now instead of Suboxone. Patient denies melena, hematochezia, unintentional weight loss or ribbon like stools. Unfortunately patient had unsuccessful colonoscopy as he had suboptimal prep. Patient reports that he drank all of his prep and did the way he was supposed to. Patient admits that he does not drink water. He hardly drinks anything all day. Patient is also not eating fiber. Patient admits that he could do better eating healthier with more vegetables and fruits. Patient denies dyspepsia, dysphagia or odynophagia. Patient denies any other GI concerning symptoms. Patient was not scheduled for colonoscopy yet. We will send a message to surgical schedulers to book procedure for him [facility] Medical History Chronic fatigue Anemia Constipation Hypercholesterolemia Polysubstance abuse History of seizure Erectile dysfunction Fibromyalgia Tobacco abuse Ascending aorta dilatation Opioid dependence Insomnia Surgical History Hx of colonoscopy No pertinent past surgical history Family History Father Hypertension Mother Hypertension Brother Colon cancer Brother Depression with anxiety Mental health disorder Social History Household Members: Spouse Housing: House Alcohol intake: never Patient Tobacco Use Status: Former Tobacco user Tobacco use type: Cigarette Years Smoked: Vape electronic cigarettes- states stopped vape 08/2023 e-Cigarette/Vaping Use: Former Use Second Hand Smoke Exposure: No service: No Current occupational status: employed Cognitive needs: No Hearing needs: No Vision needs: No Review of Systems Const Denies weight gain and Denies weight loss ENT Reports no additional complaints, Denies dysphagia and Denies odynophagia Card Reports no additional complaints Resp Reports no additional complaints GI Reports abdominal pain, Denies belching, Denies melena, Reports bloating, Denies change in bowel habits, Reports constipation, Denies dysphagia, Denies excessive flatus, Denies dyspepsia, Denies heartburn, Denies diarrhea, Denies loose stools, Denies nausea, Denies odynophagia and Denies vomiting Reports no additional complaints Musc Reports no additional complaints Neuro Reports no additional complaints Psych Reports no additional complaints Endo Reports no additional complaints Physical Exam Vital Signs: Last Vital Signs Pulse 74 11/02/24 14:36 BP 110/62 11/02/24 14:36 Pulse Ox 96 11/02/24 14:36 Oxygen Delivery Method Room Air 11/02/24 14:36 BMI result Body Mass Index 26.6 Const General: healthy appearing, no acute distress and well developed Nutritional Appearance: well nourished Orientation/consciousness: patient oriented x3 Resp Effort & Inspection: normal respiratory effort, able to speak in complete sentences, no tracheal deviation and symmetric chest movement Auscultation: clear to auscultation bilaterally Cardio Rate: regular rate GI Inspection: Yes normal to inspection and No distended Palpation (GI): Soft to palpation, not firm, nontender and No hepatosplenomegaly present Auscultation: normal bowel sounds General: Yes no CVA tenderness Back/Spine/Pelvis Back: no CVA tenderness Skin General skin exam: elasticity normal, turgor normal and dry skin Neuro General: patient oriented x3 Psych Appearance: grossly normal Mental Status: mental status grossly normal Assessment & Plan Assessment & Plan (1) Opioid dependence: Comment: Methadone. presently [place] Code(s): F11.20 - Opioid dependence, uncomplicated Category: Medical Qualifiers: Substance use status: with opioid-induced psychotic disorder Complication of substance-induced condition: with unspecified complication Qualified Code(s): F11.259 - Opioid dependence with opioid-induced psychotic disorder, unspecified (2) Family history of colon cancer: Code(s): Z80.0 - Family history of malignant neoplasm of digestive organs Category: Medical (3) Constipation: Code(s): K59.00 - Constipation, unspecified Category: Medical Qualifiers: Constipation type: drug induced constipation Qualified Code(s): K59.03 - Drug induced constipation Plan Continue Amitiza. Increase fluid intake and activity to promote better bowel motility. Patient does not drink water alone. Patient was recommended to start with 32 oz of water every day. Benefiber also recommended. Patient will try to increase more vegetables in his diet. Message sent to surgical schedulers to book procedure for him as he had suboptimal prep last colonoscopy. We will try to do 2 days of clear with extra laxative. Patient is agreeable to this plan of care and verbalizes understanding of instructions. He was given the opportunity to ask questions and all questions answered. 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
== END 2024-11-02 15:13 | disposition home or self-care (01) ==
PROVIDERS: PCP Internal Medicine; Visit Provider Nurse Practitioner Family
DX: F11.259 Opioid dependence with opioid-induced psychotic disorder, unspecified (principal); Z80.0 Family history of malignant neoplasm of digestive organs; K59.03 Drug induced constipation
CPT/HCPCS: 99213

== ENCOUNTER → 2024-11-02 14:29 | Outpatient (BNVA) | payer BC, SELFPAY | PROVIDERS: PCP Internal Medicine; Visit Provider Nurse Practitioner Family ==

== ENCOUNTER 2024-11-30 09:54 | Outpatient (REF) | payer BC, SELFPAY ==
--- NOTE | 2024-11-30 09:59 | EMG_ITS ---
FINDINGS: Left median and ulnar motor and sensory studies were performed. Left radial sensory study was performed and medial and lateral antecubital brachial sensory studies were performed and paraspinal muscles were tested with a needle. IMPRESSION: Mild left ulnar neuropathy across cubital tunnel. No evidence of median neuropathy. MD CHERI Lin/ROBBY / [id number]
[2024-11-30 10:08] LABS: MANUAL DIFF FLAG NO
[2024-11-30 11:28] LABS: Basophils Percent Auto 0.5 % (0-2); Eosinophils Absolute Auto 0.1 X10*3/uL (0.0-0.4); Eosinophils Percent Auto 1.2 % (0-4); Hematocrit 42.8 % (42.0-52.0); Hemoglobin 14.1 g/dl (14.0-18.0); Imm Gran Abs Auto 0.02 X10*3/uL (0.00-0.03); Imm Gran Pct Auto 0.5 % (0.0-0.4); Lymphocytes Absolute Auto 1.3 X10*3/uL (1.2-4.9); Lymphocytes Percent Auto 31.7 % (20-40); Mean Corpuscular HGB Conc 32.9 g/dl (31.0-36.0); Mean Corpuscular Hemoglobin 29.9 pg (27.0-33.0); Mean Corpuscular Volume 90.7 fL (80.0-98.0); Mean Platelet Volume 10.3 fL (9.4-12.4); Monocytes Absolute Auto 0.4 X10*3/uL (0.1-1.2); Monocytes Percent Auto 9.9 % (2-11); Neutrophils Absolute Auto 2.3 x10*3/uL (2.0-8.3); Neutrophils Percent Auto 56.2 % (45-73); Platelet Count 279 X10*3/uL (160-400); Red Blood Count 4.72 X10*6/uL (4.60-5.80); Red Cell Distribution Width 12.5 % (11.0-16.0); White Blood Count 4.1 X10*3/uL (4.8-10.8)
[2024-11-30 12:45] LABS: Alanine Aminotransferase 44 U/L (0-40); Albumin Level 4.2 g/dL (3.5-5.0); Alkaline Phosphatase 66 U/L (39-117); Anion Gap 11 (12-20); Aspartate Amino Transferase 38 U/L (5-37); Bilirubin Total 0.5 mg/dL (0.0-1.0); Blood Urea Nitrogen 13 mg/dL (9-16); Calcium 9.2 mg/dL (8.4-10.2); Carbon Dioxide 28 mmol/L (22-29); Chloride 105 mmol/L (96-108); Cholesterol 233 mg/dL (<200); Estimated Glomerular Filt Rate > 60; Glucose Random 108 mg/dL (60-115); HDL Cholesterol 45 mg/dL (>40); LDL Cholesterol Calculated 163 mg/dL (<100); Potassium 3.9 mmol/L (3.3-5.1); Sodium 140 mmol/L (135-145); Total Protein 7.6 g/dL (6.5-8.0); Triglycerides 128 mg/dL (<150)
[2024-11-30 12:49] LABS: TSH reflex Free T4 3.16 uIU/mL (0.32-4.0); Thyroid Stimulating Hormone 3.16 uIU/mL (0.32-4.0)
[2024-11-30 13:11] LABS: Prostate Specific Antigen Scr 0.23 ng/mL (<0.05-4.0)
== END 2024-11-30 09:55 | disposition home or self-care (01) ==
LOC: HO.NEURO 09:54
PROVIDERS: PCP Internal Medicine
DX: Z00.00 Encounter for general adult medical examination without abnormal findings (principal); Z13.6 Encounter for screening for cardiovascular disorders; Z12.5 Encounter for screening for malignant neoplasm of prostate; R20.0 Anesthesia of skin
CPT/HCPCS: 36415; 80053; 80061; 84153; 84443; 85025; 95886; 95910

== ENCOUNTER 2025-02-09 11:22 | Outpatient (REF) | payer BC, SELFPAY ==
--- NOTE | ~2025-02-09 | US_ITS ---
CLINICAL HISTORY: R79.89 - Other specified abnormal findings of blood chemistry US abdomen complete Comparison: None Findings: The visualized pancreas is normal. The aorta and inferior vena cava are normal caliber. The liver is normal in size and increased in echotexture. There is no intrahepatic bile duct dilatation. The common duct is 5.5 mm in diameter. The gallbladder is normal. There is no sonographic Louise sign. The main portal vein is antegrade. The right kidney is 9.5 cm in length. The left kidney is 9.8 cm in length. The spleen is normal. No ascites. IMPRESSION: Mild hepatic steatosis. No acute process. This document has been electronically signed by: Vj Coleman MD on 02/10/2025 05:37:07
== END 2025-02-09 11:23 | disposition home or self-care (01) ==
LOC: HO.HMGCX 11:22
PROVIDERS: PCP Internal Medicine
DX: R79.89 Other specified abnormal findings of blood chemistry (principal)
CPT/HCPCS: 76700

== ENCOUNTER → 2025-02-09 11:24 | Outpatient (BNV) | payer BC, SELFPAY | PROVIDERS: PCP Internal Medicine; Visit Provider Radiology Vascular & Interventional Radiology | DX: R79.89 Other specified abnormal findings of blood chemistry (principal) | CPT/HCPCS: 76700 ==

== ENCOUNTER 2025-05-18 09:46 | Outpatient (AMB) | payer BC, SELFPAY ==
--- NOTE | 2025-05-18 09:54 | A.OFFVIS_ITS ---
Vital Signs 05/18/25 10:09 Height 5 ft 11 in Weight 166 lb 10.711 oz BMI 23.2 BP 96/62 Blood Pressure Location Lt brachial Position Sitting Pulse 64 Pulse Source Pulse Oximeter Pulse Oximetry (%) 97 Oxygen Delivery Method Room Air Intake Visit Reasons: Chronic fatigue/New Patient Intake Note: Patient presents for Chronic fatigue. Patient c/o of muscles and sensitive to touch. Patient having stiffness on both wrist, both knees and ankles. Patient been having these symptoms for 15 years and is getting worse. Patient has tried Gabapentin and it didn't work. Allergies Seasonal Allergies Allergy (Mild, Verified 05/18/25 10:04) Unknown Medication List - Last Reconciled 05/18/25 by Pearl Fabian MD benzoyl peroxide 10% 1 appl topical DAILY bisacodyl (Dulcolax (bisacodyl)) 10 mg (2 x 5 mg) PO BEDTIME clonazepam mg PO Q8H PRN esomeprazole magnesium (Nexium) 40 mg PO DAILY fluticasone propionate 50 mcg/actuation 2 sprays intranasal DAILY hydrocortisone 2.5% 1 appl topical BID-TID PRN ketoconazole 2% 1 appl topical 2XW 30 days lubiprostone (Amitiza) 24 mcg PO BID methadone 180 mg PO DAILY nicotine 1 patch transdermal DAILY nicotine 1 patch transdermal DAILY polyethylene glycol 3350 (Miralax) 17 grams PO DAILY 30 days sennosides-docusate sodium 8.6-50 mg (Senna-S) 2 tab-caps (2 x 8.6-50 mg) PO BEDTIME 30 days sildenafil 100 mg PO DAILY PRN simvastatin 5 mg PO BEDTIME trazodone 200 mg (2 x 100 mg) PO BEDTIME zolpidem ER 12.5 mg PO BEDTIME PRN HPI Comments Details: Patient is a 45 y.o. male with depression, NAFLD, HLD and opioid dependence (on methadone) here today for evaluation of chronic fatigue and joint stiffness Patient states that for the past 15 years he has been noting muscle sensitivity, fatigue and joint stiffness. Tried gabapentin which did not help. 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 Has been managing the discomfort conservatively. Previously tried Tylenol and Ibuprofen but these do not help. Has noticed that over the past 1 year his symptoms have been getting worse. After a long day he notes pain and stiffness to his ankles and hands. Sometimes things fall out of his hands. Feels extreme sensitivity when you touch him AM stiffness for about an hour No associated swelling No rashes No hx DVT or PE No oral or nasal ulcers No Raynaud's No hx of serositis. Had ECHO 10/2023 which was overall unremarkable No known family history of autoimmune disease PFSH Medical History Chronic fatigue Anemia Constipation Hypercholesterolemia Polysubstance abuse History of seizure Erectile dysfunction Fibromyalgia Tobacco abuse Ascending aorta dilatation Opioid dependence Insomnia Surgical History Hx of colonoscopy No pertinent past surgical history Family History Father Hypertension Mother Hypertension Brother Colon cancer Brother Depression with anxiety Mental health disorder Social History Household Members: Spouse Housing: House Alcohol intake: never Patient Tobacco Use Status: Former Tobacco user Tobacco use type: Cigarette Years Smoked: Vape electronic cigarettes- states stopped vape 08/2023 e-Cigarette/Vaping Use: Former Use Second Hand Smoke Exposure: No service: No Current occupational status: employed Cognitive needs: No Hearing needs: No Vision needs: No Review of Systems Const Details: Review of Systems Constitutional: Denies fever, chills, weight loss ENT: Denies vision changes, eye pain or eye redness, dental caries, dry mouth GI: Denies nausea, vomiting, diarrhea, abdominal pain, change in BM Pulm: Denies SOB, PINEDA, hemoptysis, wheezing Cards: Denies chest pain, palpitations Skin: Denies Raynaud's, rash, nail changes, photosensitivity, KETTLEMAN: Denies headaches, weakness, paresthesias, recurrent falls MSK: as per HPI All other systems reviewed and are unremarkable except noted above Physical Exam Exam Exam: Vital signs reviewed Physical Examination CONSTITUITIONAL Patient alert and cooperative. Well appearing and in no apparent painful distress MSK Hands * Right Hand: Able to make a fist. No swelling. Mild TTP of the PIPs. No deformities noted. * Left Hand: Able to make a fist. No swelling. Mild TTP of the PIPs. No deformities noted. No deformities noted. Wrists * Right Wrist: Full ROM. 70 degrees of wrist flexion, 80 degrees of wrist extension. No swelling or TTP * Left Wrist: Full ROM. 70 degrees of wrist flexion, 80 degrees of wrist extension. No swelling or TTP Elbows * Right Elbow: Full ROM. No swelling or TTP. No TTP of the medial and lateral epicondyles * Left Elbow: Full ROM. No swelling or TTP. No TTP of the medial and lateral epicondyles Shoulders * Right shoulder: Full ROM. No swelling noted. No TTP of the AC joint, subacromial bursa or posterior shoulder * Left shoulder: Full ROM. No swelling noted. No TTP of the AC joint, subacromial bursa or posterior shoulder Hip bursa: No tenderness to palpation bilaterally Knees * Right knee: Full ROM. No swelling noted. No TTP of the knee joint lie or pes anserine bursa * Left knee: Full ROM. No swelling noted. No TTP of the knee joint lie or pes anserine bursa. Ankles * Right ankle: Good ankle dorsiflexion and plantar flexion. No swelling. No TTP of the ankle joint * Left ankle: Good ankle dorsiflexion and plantar flexion. No swelling. No TTP of the ankle joint Feet * Right foot: Negative squeeze test * Left foot: Negative squeeze test Tender points? * TTP of bilateral trapezius and anterior costochondral junctons. No tenderness to palpation of the bilateral, supraspinatus, anterior costochondral junctions, bilateral suboccipital muscle insertions SKIN No rashes Vital Signs: Last Vital Signs Pulse 64 05/18/25 10:09 BP 96/62 05/18/25 10:09 Pulse Ox 97 05/18/25 10:09 Oxygen Delivery Method Room Air 05/18/25 10:09 BMI result Body Mass Index 23.2 Results Reviewed Results Reviewed: Laboratory Tests 10/24/23 11/30/24 09:54 10:06 WBC 4.1 L RBC 4.72 Hgb 14.1 Hct 42.8 Plt Count 279 ESR 6 Sodium 140 Potassium 3.9 Chloride 105 Carbon Dioxide 28 BUN 13 Creatinine 0.78 AST 38 H ALT 44 H C-Reactive Protein 0.12 Assessment & Plan Assessment & Plan (1) Polyarthralgia: Code(s): M25.50 - Pain in unspecified joint Plan: #Polyarthralgias Patient is a 45-year-old here today for evaluation polyarthralgias exam and history is not consistent with any underlying autoimmune connective tissue disease at this time. Given his longstanding history of joint discomfort as seen checking x-rays and blood work is warranted. He did not have that many tender points on examination but based on the ACR 2016 classification criteria for fibromyalgia he has widespread pain and symptom duration lasting for at [facility] st 3 months he meets criteria. We will do further workup including x-rays and blood work to see if there is an underlying autoimmune condition. Plan - Check CBC, CMP, ESR, CRP, RF, CCP, C3, C4, Sjogren's antibodies - XR hands, wrists, feet and ankles - RTC 2 weeks to discuss results Plan I spent 30 minutes reviewing the record and labs, taking a history, examining the patient, discussing the treatment plan, ordering diagnostic work up and documenting in the medical record Orders: Orders Complete Blood Count Auto Diff Today M25.50 - Pain in unspecified joint C Reactive Protein Today M25.50 - Pain in unspecified joint Cyclic Citrullinated Peptide Today M25.50 - Pain in unspecified joint XR Foot Abhilash 3V Today M25.50 - Pain in unspecified joint Comprehensive Met. Panel Today M25.50 - Pain in unspecified joint Erythrocyte Sedimentation Rate Today M25.50 - Pain in unspecified joint Rheumatoid Factor Today M25.50 - Pain in unspecified joint Vitamin D 25-OH Total Today M25.50 - Pain in unspecified joint Protein Electrophoresis, Serum Today M25.50 - Pain in unspecified joint, M35.00 - Sjogren syndrome, unspecified Complement C4 Today M25.50 - Pain in unspecified joint, M35.00 - Sjogren syndrome, unspecified Complement C3 Today M25.50 - Pain in unspecified joint, M35.00 - Sjogren syndrome, unspecified Sjogren's Antibodies Today M25.50 - Pain in unspecified joint XR Hand Bilat min 3v Today M25.50 - Pain in unspecified joint XR wrist LT min 3V Today M25.50 - Pain in unspecified joint XR wrist RT min 3V Today M25.50 - Pain in unspecified joint XR ankle LT min 3V Today M25.50 - Pain in unspecified joint XR ankle RT min 3V Today M25.50 - Pain in unspecified joint Coding Level of Care Code New Pt Level 3 (99907) Diagnoses Polyarthralgia M25.50
[2025-05-18 10:09] VITALS: BP 96/62; PULSE 64; O2SAT 97; BMI 23.2
== END 2025-05-18 10:36 | disposition home or self-care (01) ==
LOC: HO.RHE 09:48
PROVIDERS: PCP Internal Medicine; Visit Provider Student in an Organized Health Care Education/Training Program
DX: M25.50 Pain in unspecified joint (principal)
CPT/HCPCS: 99203

== ENCOUNTER 2025-05-18 09:46 | Outpatient (REF) | payer BC, SELFPAY ==
--- NOTE | ~2025-05-18 | XR_ITS ---
Exam: Three-view bilateral feet x-rays No prior INDICATION: Pain TECHNIQUE: AP, oblique, lateral view lower extremity, bilateral feet x-rays FINDINGS: Left foot: There is no acute deformity, degenerative changes, fracture, or other abnormalities. Right foot: On lateral view, there is a bony exostosis projecting dorsally from the neck region of a metatarsal, likely of the first metatarsal. Otherwise, no deformity, degenerative change, erosions, or other abnormalities are seen. XR/XR Foot Abhilash 3V IMPRESSION: Left foot: Unremarkable. Right foot: There is a bony exostosis projecting away from a metatarsophalangeal joint located on the dorsal neck of a metatarsal, probably the first metatarsal. This could represent a small osteochondroma. Electronically signed by: Hernan Dasilva MD 05/18/2025 11:34 AM EDT
--- NOTE | ~2025-05-18 | XR_ITS ---
Exam: 4 view x-ray bilateral wrist TECHNIQUE: PA, oblique, lateral, navicular spot view bilateral wrists INDICATION: Pain Prior: March 25, 2019 FINDINGS: Left wrist: No acute deformity, or degenerative changes are identified. There is no joint diastases. No fracture line is evident. Right wrist: Mild degenerative changes are present first carpal metacarpal joint with small osteophyte and minimal subchondral sclerosis. There is no joint diastases. No fracture line is evident. XR/XR Wrist Abhilash min 3V Impression: Unremarkable left wrist. 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 Electronically signed by: Hernan Dasilva MD 05/18/2025 11:30 AM EDT
--- NOTE | ~2025-05-18 | XR_ITS ---
EXAMINATION: XR ANKLE, bilateral CLINICAL INFORMATION: M25.50 - Pain in unspecified joint COMPARISON: None available. TECHNIQUE: AP, lateral, and mortise views lower extremity joint, bilateral ankle. FINDINGS: Left ankle Ankle mortise is congruent. There is no widening of the syndesmosis. Talar dome is intact. There are no plantar calcaneal enthesiophytes. Right ankle Ankle mortise is congruent. There is no widening of the syndesmosis. Talar dome is intact. There are no plantar calcaneal enthesiophytes. XR/XR Ankle Abhilash min 3V IMPRESSION: Unremarkable bilateral ankle x-ray. Electronically signed by: Hernan Dasilva MD 05/18/2025 11:44 AM EDT
--- NOTE | ~2025-05-18 | XR_ITS ---
Exam: X-ray: Three-view bilateral hands TECHNIQUE: PA, oblique, lateral view bilateral hands INDICATION: Joint pain Prior: March 25, 2019 FINDINGS: RIGHT HAND: There is a small degenerative cyst involving the head of the third metacarpal on the radial side that is unchanged since the prior. There is ill-defined lucency in the dorsal aspect of the first metacarpal head. This was likely present on the prior as well. There is mild marginal osteophyte formation involving the first carpometacarpal joint. There is no joint space narrowing. LEFT HAND: Ulnar variance measures +2.5 mm. There is vague degenerative cystic change in the ulnar side of the lunate. Mild osteophyte formation is present on the margin of the first carpal metacarpal joint. There is moderate narrowing and marginal osteophytes involving the triquetral pisiform joint. Small marginal osteophyte is noted at the first metacarpophalangeal joint. There are no erosions. There is no soft tissue calcification. XR/XR Hand Bilat min 3v IMPRESSION: RIGHT HAND: Mild first CMC joint osteoarthritis. Nonspecific chronic degenerative cystic changes involving the first and third metacarpal heads. 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 Electronically signed by: Hernan Dasilva MD 05/18/2025 11:42 AM EDT
[2025-05-18 11:01] LABS: MANUAL DIFF FLAG NO
[2025-05-18 12:00] LABS: Hematocrit 42.1 % (42.0-52.0); Hemoglobin 13.8 g/dl (14.0-18.0); Imm Gran Abs Auto 0.00 X10*3/uL (0.00-0.03); Imm Gran Pct Auto 0.0 % (0.0-0.4); Lymphocytes Absolute Auto 1.5 X10*3/uL (1.2-4.9); Mean Corpuscular HGB Conc 32.8 g/dl (31.0-36.0); Mean Corpuscular Hemoglobin 29.6 pg (27.0-33.0); Mean Corpuscular Volume 90.3 fL (80.0-98.0); NRBC Abs Auto 0.000 X10*3/uL (0.0-0.012); NRBC Pct Auto 0.0 /100WBC (0.0-0.2); Platelet Count 306 X10*3/uL (160-400); Red Blood Count 4.66 X10*6/uL (4.60-5.80); White Blood Count 3.9 X10*3/uL (4.8-10.8)
[2025-05-18 14:03] LABS: Alanine Aminotransferase 33 U/L (0-40); Albumin Level 4.4 g/dL (3.5-5.0); Alkaline Phosphatase 69 U/L (39-117); Anion Gap 14 (12-20); Aspartate Amino Transferase 34 U/L (5-37); Blood Urea Nitrogen 18 mg/dL (9-16); Calcium 9.1 mg/dL (8.4-10.2); Carbon Dioxide 31 mmol/L (22-29); Chloride 104 mmol/L (96-108); Estimated Glomerular Filt Rate > 60; Potassium 4.5 mmol/L (3.3-5.1); Sodium 144 mmol/L (135-145); Total Protein 7.1 g/dL (6.5-8.0)
[2025-05-19 22:27] LABS: Antibody to SS-A Antigen <1.0 NEG AI (<1.0 NEG); Antibody to SS-B Antigen <1.0 NEG AI (<1.0 NEG)
[2025-05-20 22:28] LABS: Prot Elec - Albumin 4.2 g/dL (3.8-4.8); Prot Elec - Alpha1 0.2 g/dL (0.2-0.3); Prot Elec - Alpha2 0.7 g/dL (0.5-0.9); Prot Elec - Beta 1 0.4 g/dL (0.4-0.6); Prot Elec - Beta 2 0.4 g/dL (0.2-0.5); Prot Elec - Gamma 0.9 g/dL (0.8-1.7); Prot Elec - Total Protein 6.8 g/dL (6.1-8.1)
== END 2025-05-18 09:47 | disposition home or self-care (01) ==
LOC: HO.LAB 09:46
PROVIDERS: PCP Internal Medicine; Visit Provider Student in an Organized Health Care Education/Training Program
DX: M79.641 Pain in right hand (principal); M79.642 Pain in left hand; R53.82 Chronic fatigue, unspecified; M25.671 Stiffness of right ankle, not elsewhere classified; M25.672 Stiffness of left ankle, not elsewhere classified; M25.661 Stiffness of right knee, not elsewhere classified; M25.662 Stiffness of left knee, not elsewhere classified; M25.631 Stiffness of right wrist, not elsewhere classified; M25.632 Stiffness of left wrist, not elsewhere classified; M25.571 Pain in right ankle and joints of right foot; M25.572 Pain in left ankle and joints of left foot; M35.00 Sjogren syndrome, unspecified; Z79.899 Other long term (current) drug therapy; Z79.891 Long term (current) use of opiate analgesic
CPT/HCPCS: 36415; 73110; 73130; 73610; 73630; 80053; 82306; 84165; 85025; 85652; 86140; 86160; 86200; 86235; 86431

== ENCOUNTER → 2025-05-18 11:00 | Outpatient (BNV) | payer BC, SELFPAY | PROVIDERS: PCP Internal Medicine; Visit Provider Radiology Diagnostic Radiology | DX: M18.11 Unilateral primary osteoarthritis of first carpometacarpal joint, right hand (principal); M25.539 Pain in unspecified wrist; M25.579 Pain in unspecified ankle and joints of unspecified foot; M25.774 Osteophyte, right foot | CPT/HCPCS: 73110; 73130; 73610; 73630 ==

== ENCOUNTER 2025-06-13 14:40 | Outpatient (AMB) | payer BC, SELFPAY ==
--- NOTE | 2025-06-13 15:00 | A.OFFPC_ITS ---
Vital Signs 06/13/25 15:02 06/13/25 15:06 Height 5 ft 11 in Weight 161 lb 4 oz BMI 22.5 BP 140/60 H 100/74 Blood Pressure Location Lt brachial Lt brachial Position Sitting Sitting Pulse 83 Pulse Source Pulse Oximeter Temp 97.3 F Temp Source Temporal Artery Scan Pulse Oximetry (%) 95 Oxygen Delivery Method Room Air Intake Visit Reasons: f/u Anxiety / Insomnia Intake Note: Patient is here to follow up on Anxiety, Insomnia. Strategy Planning Consultant Required: No V Belt Builder: Not Required per policy Accompanied by: Self / Same As Patient Allergies Seasonal Allergies Allergy (Mild, Verified 06/13/25 15:01) Unknown Tobacco use date assessed: 06/13/25 Dental Screening Dental Screen Date: 10/29/24 [facility] [place] Medical History Chronic fatigue Anemia Constipation Hypercholesterolemia Polysubstance abuse History of seizure Erectile dysfunction Fibromyalgia Tobacco abuse Ascending aorta dilatation Opioid dependence Insomnia Surgical History Hx of colonoscopy No pertinent past surgical history Family History Father Hypertension Mother Hypertension Brother Colon cancer Brother Depression with anxiety Mental health disorder Social History Household Members: Spouse Housing: House Alcohol intake: never Patient Tobacco Use Status: Former Tobacco user Tobacco use type: Cigarette Years Smoked: Vape electronic cigarettes- states stopped vape 08/2023 e-Cigarette/Vaping Use: Currently Using Frequency of e-Cigarette/Vaping Use: Sometimes Second Hand Smoke Exposure: Yes service: No Current occupational status: employed Cognitive needs: No Hearing needs: No Vision needs: No Questionnaire Thrive Questionnaire Date Thrive assessed: 10/29/24 I am a: Patient What is your living situation today?: I have a steady place to live Within the past 12 months, did the food you bought not last and you didn't have the money to get more?: Never true Within the past 12 months, did you worry whether your food would run out before you got money to buy more?: Never true Do you have trouble paying for medicines?: No Do you have trouble getting transportation to medical appointments?: No Do you have trouble paying your heating and electricity bill?: No Do you have trouble taking care of your child, family member or friend?: No Do you have trouble with day-to-day activities such as bathing, preparing meals, shopping, managing finances, etc.?: No Are you currently unemployed and looking for a job?: No Are you interested in more education?: No Please select the resources that you would like help with: None Currently or been in a relationship where the following occur: No concerns reported THRIVE Score: 0 MATY-7 AMB Questionnaire MATY-7 Date MATY - 7 assessed: 10/29/24 Source: Developed by Drs. Solomon Turner, Gissel Samano, Herb Mueller and colleagues, with an educational panchito from [employer]. Physical exam (Primary Care) Vital Signs: Last Vital Signs Temp 97.3 F 06/13/25 15:02 Pulse 83 06/13/25 15:02 BP 100/74 06/13/25 15:06 Pulse Ox 95 06/13/25 15:02 Oxygen Delivery Method Room Air 06/13/25 15:02 BMI result Body Mass Index 22.5 Tobacco/Smoking Status: Tobacco use Status Tobacco use date assessed 06/13/25 06/13/25 15:07 Patient Tobacco Use Status Former Tobacco user 06/13/25 15:07 Tobacco use type Cigarette 06/13/25 15:07 e-Cigarette/Vaping Use Currently Using 06/13/25 15:07 Thrive Assessment: Date of Thrive Assessment Date Thrive assessed 10/29/24 06/13/25 15:07 Currently or been in a relationship where the following occur: No concerns reported Const General: alert; No acute distress Eyes Conjunctivae: conjunctivae normal Resp Auscultation: clear to auscultation bilaterally Cardio Rate: regular rate Rhythm: regular rhythm GI Inspection: Yes normal to inspection Extrem General: Yes normal to inspection and No edema Coding Level of Care Code Est Pt Level 4 (78100) Complex EM visit Add On G2211 Diagnoses 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 presently Clean Dea Code(s): F11.20 - Opioid dependence, uncomplicated Category: Medical Qualifiers: Complication of substance-induced condition: with unspecified complication Substance use status: with opioid-induced psychotic disorder Qualified Code(s): F11.259 - Opioid dependence with opioid-induced psychotic disorder, unspecified Plan: Patient follows up with malcolm Malin on methadone (2) Hypercholesterolemia: Code(s): E78.00 - Pure hypercholesterolemia, unspecified Category: Medical Plan: Avoid fried foods, chicken skin, eggs, butter margarine, pastries and meat. Be it pork or beef they have a lot of cholesterol LDL goal of less than 130 and triglyceride of less than 150 patient on simvastatin 5 mg at bedtime (3) Fatty liver disease, nonalcoholic: Code(s): K76.0 - Fatty (change of) liver, not elsewhere classified Category: Medical Plan: Low-fat diet and exercise (4) Constipation: Code(s): K59.00 - Constipation, unspecified Category: Medical Qualifiers: Constipation type: drug induced constipation Qualified Code(s): K59.03 - Drug induced constipation Plan: Three rules for constipation 1. Diet need to have a high fiber diet less of meat 2. Increase oral fluids 3. Exercise patient placed on Amitiza seeing gastro (5) Fibromyalgia: Code(s): M79.7 - Fibromyalgia Category: Medical Plan: Patient is being worked up by Rheumatology (6) Tobacco abuse: Comment: uses vape Code(s): Z72.0 - Tobacco use Category: Medical Plan: Patient is strongly advised to stop vaping. on the patch right now (7) Generalized anxiety disorder: Comment: BHN Q 3 months Code(s): F41.1 - Generalized anxiety disorder Category: Medical Plan: Continue to follow-up with counseling and therapy Plan History of Present Illness The patient is a 45-year-old male presenting for follow-up of multiple chronic conditions including hypercholesterolemia, fibromyalgia, and hepatic steatosis. The patient has a history of hypercholesterolemia, with recent lab results showing an LDL level of 163 mg/dL. He has been prescribed simvastatin 5 mg at bedtime but reports inconsistent adherence to the medication regimen. Dietary modifications have been advised, including a no-fat diet and increased exercise. The patient has fibromyalgia and reports chronic fatigue as a significant symptom. He has been evaluated by rheumatology, which diagnosed arthralgia but noted few tender points on examination. A workup was requested, and immune testing returned negative results for rheumatoid factor and Sj?gren's syndrome. The patient has a history of opioid dependence and is currently on methadone maintenance therapy. He is also being treated for generalized anxiety disorder and continues to follow up with counseling and therapy. The patient has hepatic steatosis, confirmed by ultrasound, and has been advised to increase physical activity. He also reports chronic idiopathic constipation, for which he is taking Amitiza twice daily. The patient has been diagnosed with gastroesophageal reflux disease (GERD) and is on esomeprazole therapy. He is scheduled for an upper and lower endoscopy to further evaluate his gastrointestinal symptoms. The patient reports mild ulnar neuropathy on the left side, confirmed by nerve conduction studies. He also has osteoarthritis, with x-rays showing chronic degenerative changes and moderate arthritis in the left hand. A bone exostosis was noted on the right foot, but the ankle x-ray was negative. Health Maintenance - Advised to increase physical activity for hepatic steatosis management - Dietary modifications including a no-fat diet for hypercholesterolemia - Scheduled for upper and lower endoscopy for gastrointestinal evaluation - Continues follow-up with counseling and therapy for anxiety management Social History - Substance use: History of opioid dependence, currently on methadone maintenance therapy - Exercise: Advised to increase physical activity - Nutrition: Following a no-fat diet and using Slimfast for weight management - Smoking: Strongly advised to stop vaping Review of Systems - Musculoskeletal: Reports chronic fatigue and arthralgia, denies significant tender points - Gastrointestinal: Reports chronic idiopathic constipation and GERD, denies other gastrointestinal symptoms - Neurological: Reports mild ulnar neuropathy on the left side - Psychological: Reports generalized anxiety disorder, denies other psychological symptoms Physical Exam Results - Labs: LDL cholesterol level of 163 mg/dL, mild anemia with hemoglobin 13.8 g/dL and hematocrit 42.1%, normal electrolytes, renal function, blood sugar, and liver function tests - Imaging: Ultrasound showing hepatic steatosis, x-ray showing osteoarthritis and bone exostosis - Tests: Nerve conduction study showing mild ulnar neuropathy on the left side Plan Patient was informed and verbally consented to the use of an ambient scribe for clinic note documentation during this visit. 1. Hypercholesterolemia The patient is advised to adhere to a no-fat diet and increase physical activity to manage hypercholesterolemia. Simvastatin 5 mg at bedtime is prescribed, with a goal to reduce LDL cholesterol to less than 130 mg/dL. 2. Fibromyalgia The patient is under rheumatology care for fibromyalgia, with a focus on managing chronic fatigue and arthralgia. Negative immune testing results have been noted, and further workup is ongoing. 3. Opioid Dependence The patient continues methadone maintenance therapy and is advised to follow up with counseling and therapy. 4. Generalized Anxiety Disorder The patient is advised to continue counseling and therapy for anxiety management. 5. Hepatic Steatosis The patient is advised to increase physical activity to manage hepatic steatosis. 6. Chronic Idiopathic Constipation The patient is on Amitiza twice daily and advised to increase activity for constipation management. 7. Gastroesophageal Reflux Disease (Gerd) The patient is on esomeprazole therapy and scheduled for an upper and lower endoscopy for further evaluation. 8. Ulnar Neuropathy The patient is advised to manage mild ulnar neuropathy with conservative measures. 9. Osteoarthritis The patient is advised to use Voltaren gel for pain management in osteoarthritis. Discussion Notes During the visit, I discussed with the patient the importance of adhering to prescribed medications, including simvastatin for hypercholesterolemia and esomeprazole for GERD. We reviewed the need for lifestyle modifications, such as a no-fat diet and increased physical activity, to manage his conditions effectively. I emphasized the importance of follow-up appointments with rheumatology and gastroenterology to monitor his fibromyalgia and gastrointestinal symptoms. Patient Instructions - Take simvastatin 5 mg at bedtime as prescribed. - Follow a no-fat diet and increase physical activity. - Continue esomeprazole therapy for GERD management. - Attend scheduled follow-up appointments with rheumatology and g astroenterology. - Use Voltaren gel for osteoarthritis pain management as needed. Orders: Orders Lipid Panel 3 Months E78.00 - Pure hypercholesterolemia, unspecified Complete Blood Count Auto Diff 3 Months E78.00 - Pure hypercholesterolemia, unspecified Comprehensive Met. Panel 3 Months E78.00 - Pure hypercholesterolemia, unspecified Free T4 (Free Thyroxine) 3 Months E78.00 - Pure hypercholesterolemia, un specified Thyroid Stimulating Hormone 3 Months E78.00 - Pure hypercholesterolemia, unspecified Medications: Refilled simvastatin 5 mg PO BEDTIME 30 tabs 4RF E78.00 - Pure hypercholesterolemia, unspecified
[2025-06-13 15:02] VITALS: BP 140/60; PULSE 83; TEMP 36.3; O2SAT 95; BMI 22.5
[2025-06-13 15:06] VITALS: BP 100/74
== END 2025-06-13 15:49 | disposition home or self-care (01) ==
LOC: HO.HMCH 14:45
PROVIDERS: PCP Internal Medicine; Visit Provider Internal Medicine
DX: F11.259 Opioid dependence with opioid-induced psychotic disorder, unspecified (principal); E78.00 Pure hypercholesterolemia, unspecified; K76.0 Fatty (change of) liver, not elsewhere classified; K59.03 Drug induced constipation; M79.7 Fibromyalgia; Z72.0 Tobacco use; F41.1 Generalized anxiety disorder

== ENCOUNTER 2025-06-24 12:34 | Outpatient (AMB) | payer BC, SELFPAY ==
--- NOTE | 2025-06-24 12:43 | MHC.OFFVIS ---
Vital Signs 06/24/25 12:48 Height 5 ft 11 in Weight 164 lb 7.437 oz BMI 22.9 BP 98/64 Blood Pressure Location Lt brachial Position Sitting Pulse 74 Pulse Source Pulse Oximeter Pulse Oximetry (%) 94 Oxygen Delivery Method Room Air Intake Visit Reasons: follow up Intake Note: Patient presents for polyarthralgia follow up. Allergies Seasonal Allergies Allergy (Mild, Verified 06/24/25 12:47) Unknown HPI Comments Details: Patient is a 45 y.o. male with depression, NAFLD, HLD and opioid dependence (on methadone) here today for follow up of chronic fatigue and joint stiffness Interval History: Patient last seen 05/18/25 with md - New patient evaluation for chronic fatigue and joint stiffness - Exam and history is not consistent with any underlying autoimmune connective tissue disease - XRs and Labs ordered for completion Today, - Here today for follow up Rheumatologic History: Initial History: Patient states that for the past 15 years he has been noting muscle sensitivity, fatigue and joint stiffness. Tried gabapentin which did not help. Saw a previous director summer sessions who said there was no underlying disease. Has been managing the discomfort conservatively. Previously tried Tylenol and Ibuprofen but these do not help. Has noticed that over the past 1 year his symptoms have been getting worse. After a long day he notes pain and stiffness to his ankles and hands. Sometimes things fall out of his hands. Feels extreme sensitivity when you touch him AM stiffness for about an hour No associated swelling No rashes No hx DVT or PE No oral or nasal ulcers No Raynaud's No hx of serositis. Had ECHO 10/2023 which was overall unremarkable No known family history of autoimmune disease Current Rheumatology Medication(s): [facility] Medical History Chronic fatigue Anemia Constipation Hypercholesterolemia Polysubstance abuse History of seizure Erectile dysfunction Fibromyalgia Tobacco abuse Ascending aorta dilatation Opioid dependence Insomnia Surgical History Hx of colonoscopy No pertinent past surgical history Family History Father Hypertension Mother Hypertension Brother Colon cancer Brother Depression with anxiety Mental health disorder Social History Household Members: Spouse Housing: House Alcohol intake: never Patient Tobacco Use Status: Former Tobacco user Tobacco use type: Cigarette Years Smoked: Vape electronic cigarettes- states stopped vape 08/2023 e-Cigarette/Vaping Use: Currently Using Second Hand Smoke Exposure: Yes service: No Current occupational status: employed Cognitive needs: No Hearing needs: No Vision needs: No Review of Systems Const All systems reviewed & are unremarkable except as noted in HPI and below Physical Exam Exam Exam: Exam deferred Vital Signs: Last Vital Signs Pulse 74 06/24/25 12:48 BP 98/64 06/24/25 12:48 Pulse Ox 94 06/24/25 12:48 Oxygen Delivery Method Room Air 06/24/25 12:48 BMI result Body Mass Index 22.9 Results Reviewed Results Reviewed: Laboratory Tests 05/18/25 11:00 WBC 3.9 L RBC 4.66 Hgb 13.8 L Hct 42.1 Plt Count 306 ESR 10 Sodium 144 Potassium 4.5 Chloride 104 Carbon Dioxide 31 H BUN 18 H Creatinine 0.81 AST 34 ALT 33 C-Reactive Protein 0.13 PEP Interpretation Normal Pattern 25-OH Vitamin D Total 52.7 Laboratory Tests 02/26/19 05/18/25 13:35 11:00 Rheumatoid Factor < 13.0 ROSALINDA Screen Negative Cycl Citrul Peptide IgG <16 SS-A/Ro Antibody <1.0 NEG SS-B/La Antibody <1.0 NEG Complement C3 131 Complement C4 23 XR Bilateral Ankles 04/2025 FINDINGS: Left ankle Ankle mortise is congruent. There is no widening of the syndesmosis. Talar dome is intact. There are no plantar calcaneal enthesiophytes. Right ankle Ankle mortise is congruent. There is no widening of the syndesmosis. Talar dome is intact. There are no plantar calcaneal enthesiophytes. IMPRESSION: Unremarkable bilateral ankle x-ray. XR Bilateral Feet 04/2025 FINDINGS: Left foot: There is no acute deformity, degenerative changes, fracture, or other abnormalities. Right foot: On lateral view, there is a bony exostosis projecting dorsally from the neck region of a metatarsal, likely of the first metatarsal. Otherwise, no deformity, degenerative change, erosions, or other abnormalities are seen. IMPRESSION: Left foot: Unremarkable. Right foot: There is a bony exostosis projecting away from a metatarsophalangeal joint located on the dorsal neck of a metatarsal, probably the first metatarsal. This could represent a small osteochondroma. XR Bilateral Hands 04/2025 FINDINGS: RIGHT HAND: There is a small degenerative cyst involving the head of the third metacarpal on the radial side that is unchanged since the prior. There is ill-defined lucency in the dorsal aspect of the first metacarpal head. This was likely present on the prior as well. There is mild marginal osteophyte formation involving the first carpometacarpal joint. There is no joint space narrowing. LEFT HAND: Ulnar variance measures +2.5 mm. There is vague degenerative cystic change in the ulnar side of the lunate. Mild osteophyte formation is present on the margin of the first carpal metacarpal joint. There is moderate narrowing and marginal osteophytes involving the triquetral pisiform joint. Small marginal osteophyte is noted at the first metacarpophalangeal joint. There are no erosions. There is no soft tissue calcification. IMPRESSION: RIGHT HAND: Mild first CMC joint osteoarthritis. Nonspecific chronic degenerative cystic changes involving the first and third metacarpal heads. XR Bilateral Wrist 04/2025 FINDINGS: Left wrist: No acute deformity, or degenerative changes are identified. There is no joint diastases. No fracture line is evident. Right wrist: Mild degenerative changes are present first carpal metacarpal joint with small osteophyte and minimal subchondral sclerosis. There is no joint diastases. No fracture line is evident. Impression: Unremarkable left wrist. 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 Assessment & Plan Assessment & Plan (1) Polyarticular osteoarthritis: Code(s): M15.9 - Polyosteoarthritis, unspecified Plan: #Polyarticular OA Patient is a 45-year-old male here today for follow up. Blood work showing no evidence of inflammation or autoimmune disease with negative RF, CCP and ROSALINDA. X-rays consistent with osteoarthritic changes in the hands, wrists and feet. Discuss this with the patient including that there is no treatment or cure for osteoarthritis. Recommended topical diclofenac. Told him that we can do joint injections if needed however patient is scared of needles and would like to defer that for now. Plan - Recommending topical diclofenac 1% - Discussed joint injections and patient deferred - Pain management with Tyelnol and NSAIDs - RTC prn Plan I spent 20 minutes reviewing the record and labs, discussing the labs and images with the patient, discussing the diagnosis and treatment options and documenting in the medical record Coding Level of Care Code Est Pt Level 3 (74458) Diagnoses Polyarticular osteoarthritis M15.9
[2025-06-24 12:48] VITALS: BP 98/64; PULSE 74; O2SAT 94; BMI 22.9
== END 2025-06-24 13:13 | disposition home or self-care (01) ==
LOC: HO.RHES 12:34
PROVIDERS: PCP Internal Medicine; Visit Provider Student in an Organized Health Care Education/Training Program
DX: M15.9 Polyosteoarthritis, unspecified (principal)
CPT/HCPCS: 99213

== ENCOUNTER → 2025-06-24 12:34 | Outpatient (BNVA) | payer BC, SELFPAY | PROVIDERS: PCP Internal Medicine; Visit Provider Student in an Organized Health Care Education/Training Program | DX: M19.042 Primary osteoarthritis, left hand (principal); M19.031 Primary osteoarthritis, right wrist; Z13.89 Encounter for screening for other disorder ==